=== PATIENT | male | born 1955 | race Caucasian/White ===

== ENCOUNTER 2018-06-20 09:57 | Emergency (ER) | payer BC ==
--- OUTSIDE RECORDS SUMMARY | 2018-06-20 10:27 | XMS REPORT | Continuity of Care Document ---
:1955 External Reference #:[id number] Author Name Margarita Fair Care Team Providers Name Role Phone Boni Sanchez NP Primary Care Physician Unavailable Payers Date Identification Numbers Payment Provider Subscriber Effective: 2014 Policy Number: [id number] [employer] Yecenia Anguiano PayID: [id number] [address] [address] [place] [address] Expires: 2011 Policy Number: [id number] [facility] Yecenia Annmarie PayID: [id number] [address] [address] [place] [address] Advance Directives Description No Information Available Problems Date Description Provider Status Onset: 05/13/2017 Type 2 diabetes mellitus Jackie Weaver M.D.,FACP Onset: 11/28/2007 Essential hypertension Jackie Weaver M.D.,FACP Onset: 11/28/2007 Attention deficit hyperactivity Jackie Weaver disorder, predominantly MNitin,FACP inattentive type Onset: 10/04/2009 Obesity Jackie Weaver M.D.,FACP Onset: 10/04/2009 Chronic pansinusitis Jackie Weaver M.D.,FACP Onset: 02/14/2015 Allergic rhinitis Jackie Weaver M.D.,FACP Onset: 02/14/2015 Lactose intolerance Jackie Weaver M.D.,FACP Onset: 02/18/2016 Immunodeficiency disorder Jackie Weaver M.D.,CHEIKHP Onset: 08/30/2017 Obstructive sleep apnea syndrome Jessica Goodman DNP, RN, Active [employer] Onset: 08/30/2017 Body mass index 30+ - obesity Jessica Goodman DNP, RN, Active [employer] Onset: 12/01/2017 Hypoxemia Jessica Goodman DNP, RN, Active [employer] Onset: 08/30/2007 Chronic frontal sinusitis Alex Layton, Inactive Stephanie,DOREEN Inactive: 08/24/2012 Onset: 02/10/2012 Acute maxillary sinusitis Tiff Nielsen NLiliana Inactive Inactive: 08/24/2012 Onset: 06/02/2016 Impaired fasting glycaemia Alex Layton M.D.,DOREEN Inactive Inactive: 05/13/2017 Family History Date Family Member(s) Observation Comments : (age Father due to Unknown Causes sudden -Afib 78 Years) Father Atrial Fibrillation Father Hypertension Father Obesity Father Hypercholesterolemia Mother paralyzed diaphragm Siblings 2 sister has Asthma, brother has hx of colon cancer First Brother Colon Polyps required partial colectomy ?pre-malignant Social History Type Date Description Comments Sex Unknown Marital Status Lives With Lives With Son Occupation Currently Working at [employer] Tobacco Use Start: Unknown Never Smoked Cigarettes ETOH Use 02/18/2016 Drinks Alcoholic Beverages Rarely Recreational Drug Use Denies Drug Use Tobacco Use Start: Unknown Patient has never smoked Smoking Status Reviewed: 06/06/18 Patient has never smoked Exercise Type/Frequency Exercises regularly Exercise Type/Frequency Walks 5 times a week At least 5x per week Allergies, Adverse Reactions, Alerts Date Description Reaction Status Severity Comments 06/15/2011 [place] severe sinus reaction Active 10/05/2012 Augmentin headache, nausea Active 08/30/2007 NKDA Inactive Medications Medication Date Status Form Strength Qnty SIG Indications Ordering Provider Shingrix 05/31 Active Suspension 50mcg/0.5 2unit 0.5ml Z23 Boni /2019 Rec ML s intramuscul [place] Sanchez ar, repeat 2-6 months later Naproxen 06/02 Active Tablets 500mg 60tab then as s needed Pepe Layotn M.D.,FACP Benadryl 06/02 Active Tablets 25mg 180ta 1-2 tabs 3x bs a day as Pepe Layton, needed M.D.,FACP Lactase Enzyme 06/02 Active Tablets 3000Unit 90tab 3 tabs by Alex s mouth Pepe Layton, before [place].Pepe,DOREEN meals Pseudoephedrine 06/02 Active Tablets 60mg 60tab 1 tab by Alex s mouth bid Pepe Layton, as needed M.D.,FACP Blood Pressure 06/14 Active Kit 1unit self-monito I10 Alex Kit s ring Pepe Layton, required M.D.,FACP Lisinopril 06/14 Active Tablets 5mg 30tab take one I1 s tablet by [place] Sanchez mouth every day Mucinex 10/04 Active Tablets ER 600mg 60tab 1 by mouth 12HR s bid Pepe Layton M.D.,FACP Adderall XR Active Caps ER 20mg 180ca 1 by mouth 24HR ps twice a day [place] Sanchez code b Calcium Active Tablets 400-500mg 180ta 2 tablets Alex 400/Vitamin D3 / -Unit bs by mouth Pepe Layton, daily [place].Pepe,FACP Move Free Active Tablets 500-400mg 180ta 2 tabs by Alex / bs mouth daily Pepe Layton M.D.,FACP Mens 50+ Multi Active Tablets 90tab 1 tab po qd Alex Vitamin & / s Pepe Layton Mineral Formula Stephanie,FACP Jose Manuel-E Complete Active Tablets DR 400mg 90tab 1 by mouth s every day Pepe Layton M.D.,FACP Magnesium Active Tablets 250mg 90tab 1 by mouth s every day Pepe Layton M.D.,FACP Coq-10 Active Capsules 100mg 90cap 1 by mouth s every day Pepe Layton M.D.,FACP Levocetirizine Active Tablets 5mg 1 po daily Unknown Dihydrochloride Montelukast Active Tablets 10mg 1 po daily Unknown Sodium Hyqvia Active Kit 10GM/100M SC monthly Unknown / L Esomeprazole Active Capsules DR 20mg 1 by mouth Unknown Magnesium / every day Glucosamine Active 2 po daily Unknown Chondroitin With MSM Qnasl Active Aerosol 80mcg/Act Saunders, Dequan bolton MD Beano Active Tablets prn Unknown Strattera Active Capsules 60mg 30cap take 1 Boni s capsule by [place] Sanchez mouth every evening Staxyn 05/25 Hx Tablets 10mg 10tab 1 tab by Dispers s mouth every D. Kinjal, - day as M.Pepe,[facility] 08/29 Viagra 03/05 Hx Tablets 100mg 10tab by mouth N52.9 s 0.5 or 1 D. Kinjal, - tab 1h M.DMoo,[facility] 05/25 intercourse Staxyn 02/16 Hx Tablets 10mg 10tab 1 tab po qd N52.9 Dispers s prn Ashlyn Rizzo M.D.,[facility] 03/05 Nexium 24HR 12/[address] 20mg 90cap 1 po qd Alex Clear Minis s Ashlyn Rizzo M.D.,[facility] 08/29 Hydrocodone-Acet 07/17 Hx Tablets 5-325mg 30tab 1 by mouth Alex aminophen s every 4-6 D. Kinjal, - hours prn. Stephanie,[facility] 02/16 Zithromax Z-Moi 11/09 Hx Tablets 250mg 1Pack as per 465.9 Oscar Ulrich /2013 Ashlyn Forde M.D. 02/14 Tamiflu 07/24 Hx Capsules 75mg 10cap 1 by mouth 487.8 s twice a day Pepe Layton, - x 5 days MNitin,[facility] 02/14 Zostavax 03/06 Hx Solution [id number]/ 1unit 1 dose s/c Rec 0.65ML s Ashlyn Rizzo M.D.,[facility] 07/24 Levofloxacin 10/05 Hx Tablets 500mg 10tab 1 po qd 473.8 s Ashlyn Rizzo M.D.,[facility] 11/30 Staxyn 10/05 Hx Tablets 10mg 10tab 1 tab prn 607.84 Dispers s Ashlyn Rizzo M.D.,[facility] 02/14 Augmentin 08/24 Hx Tablets 875-125mg 20tab 1 tablet 473.8 s bid po x Pepe Layton, - 10days Stephanie,[facility] 10/05 Calcium 1200 06/02 Hx Chewtabs 0885-1870 90uni 1 po qd mg-Unit ts Ashlyn Rizzo M.D.,[facility] 11/09 MSM 06/02 Hx Capsules 1000mg 90cap 1 by mouth s every day Ashlyn Rizzo M.D.,[facility] 02/14 Glucosamine HCL 06/02 Hx Tablets 1500mg Ashlyn Rizzo M.D.,[facility] 02/14 Chondroitin 06/02 Hx Capsules 1200mg 90cap 1 tab by Alex s mouth every Pepe Layton, - day MNitin,[facility] 02/14 Ibuprofen 06/02 Hx Tablets 400mg 100ta by mouth bs every 4 to Pepe Layton, - 6 hours as Stephanie,[facility] 07/17 needed Famotidine 06/02 Hx Tablets 20mg 60tab take one s tablet by Pepe Layton, - mouth as Stephanie,[facility] 02/16 needed [place]-3 Krill 06/02 Hx Capsules 300mg 90cap 1 by mouth Alex s every day Ashlyn Rizzo M.D.,[facility] 02/17 Tums E-X 750 06/02 Hx Chewtabs 750mg 120un 2-4 by its mouth every DMoo Layton, - day as Stephanie,[facility] 02/14 Amoxicillin/Pota 02/09 Hx Tablets 875-125mg 20tab take one 461.0 Tiff s tablet [place] Clavulanate - twice daily atson, 02/19 for 10 days N.P. /2011 Aspirin Ec 06/[address] 81mg 90tab 1 tablet by Alex Rico-Dose s mouth once Pepe Layton - jeffrey Brown,[facility] 02/14 Cialis 06/14 Hx Tablets 20mg 10tab 1/2- 1 prn 607.84 s as directed Ashlyn Rizzo M.D.,[facility] 10/05 Amoxicillin/Clav 06/11 Hx Tablets 875-125mg 20tab 1 po bid 466.0 [place] ulanate s Pachikara Cheri Goldberg M.D. 12/01 Doxycycline 11/06 Hx Capsules 100mg 20cap 1 po bid 473.8 Sivananda cl s , [place], - 06/11 Augmentin 07/09 Hx Tablets 875-125mg 28tab 1 bid x 14 s day Ashlyn Rizzo M.D.,[facility] 08/19 Azithromycin 06/18 Hx Tablets 500mg 10tab 1 tab qd 461.9 s for 10 days Ashlyn Rizzo M.D.,[facility] 07/09 Tamiflu 02/14 Hx Capsules 75mg 10cap 1 po qday x s 5 days Ashlyn Rizzo M.D.,[facility] 05/15 Terbinafine HCL 07/20 Hx Cream 1% Ashlyn Rizzo M.D.,[facility] 10/04 Naftin 07/11 Hx Cream 1% 30G topically 782.1 qd for 2 D. Ashlyn Layton wks Stephanie,[facility] 07/20 Maged Stockings 07/11 Hx 2unit bilateral, 459.30 s knee high, Pepe Layton, - 12-15 mmhgStephanie,[facility] 02/14 open toe Doxycycline 06/12 Hx Capsules 100mg 42cap bid PO Alex kushal s Ashlyn Rizzo M.D.,[facility] 07/11 Levaquin 05/31 Hx Tablets 500mg 7tabs 1 po qd x 7 days Ashlyn Rizzo M.D.,[facility] 06/12 Ceftin 05/29 Hx Tablets 500mg 20tab po bid for 782.3 s 10 days Ashlyn Rizzo M.D.,[facility] 08/19 Lasix 05/22 Hx Tablets 20mg 15tab po every am 782.3 s Ashlyn Rizzo M.D.,[facility] 05/29 Lisinopril 05/18 Hx Tablets 10mg 14tab 1 tablet po 401.9 s qd Ashlyn Rizzo M.D.,[facility] 06/14 Bystolic 03/29 Hx Tablets 5mg 90tab 1 po qd 401.9 s Ashlyn Rizzo M.D.,[facility] 05/18 Clarinex 11/27 Hx Tablets 5mg 90tab take one s tablet by Pepe Layton, - mouth once M.DMoo,[facility] 02/14 Zithromax 11/24 Hx Tablets 500mg 1pack Z-pack; use Oscar Ulrich per Ashlyn Braun MNitin 12/01 Ceftin 11/10 Hx Tablets 250mg 20tab 1 tab po s bid x 10 , Fany - fadumo Rhoades.DMoo 11/27 Lopressor 10/12 Hx Tablets 25mgM 60tab 1 bid 401.9 s Fany - M.D. 03/29 Clarinex-D 12 09/05 Hx Tablets ER 2.5-120 60tab bid PO prn 12HR Ashlyn Fajardo M.D.,[facility] 11/27 Omnaris 08/29 Hx Suspension 50mcg/Act 3Mon 1-2 sprays 473.1 each rudy Pepe Layton, - every day M.DMoo,[facility] 02/14 Zyrtec-D 00 Hx Tablets ER 5-120mg 60tab 1 tab bid Alex /0000 12HR s Ashlyn Rizzo M.D.,[facility] 09/05 dosage change Patanol Hx Solution 0.1% 3Bott 1-2gtts Alex / ls both eyes Pepe Layton - every day Stephanie,FACP 02/17 twice a day /2015 as needed Digestive Hx Capsules 90cap 1 by mouth Alex Support / s every day Ashlyn R[facility]zo M.D.,[facility] 08/29 Alrex Hx Suspension 0.2% 1unit use as Alex / s directed Ashlyn Rizzo M.D.,[facility] 02/14 Dulera Hx Aerosol 100-5mcg/ 2 puff Unknown /0000 Act twice a day - 02/16 Immunizations CPT Code Status Date Vaccine Lot # [id number] Given 02/16/2017 Influenza Virus Vaccine, Quadrivalent, Split, Preservative Free [id number] Given 01/17/2016 Influ Virus Vaccine, Quadrivalent, Split Virus, [place] [address] Given 01/31/2015 Flu Vaccine Split Virus Preservative Free For Indiv 3Yr Older 57702 Given 02/10/2013 Zoster (Zostavax) 83516 Given 02/10/2013 Flu Vaccine Split Virus Preservative Free For Indiv 3Yr Older 60742 Given 02/21/2012 Influenza Virus 3Yrs & Over 25857 Given 02/20/2011 Influenza Virus 3Yrs & Over 15995 Given 10/04/2009 Tdap - Tetanus/Diptheria/Acellular Pertussis [id number] 85521 Given 02/14/2009 Influenza Virus Vaccine, Pandemic Formulation [id number] 83800 Given 02/14/2009 Administration Swine Flu Shot Vital Signs Date Vital Result Comment 06/06/2018 8:05am Height 68 inches 5'8" Weight 230.50 lb Heart Rate 72 /min BP Systolic Sitting 150 mmHg Lue large cuff BP Diastolic Sitting 84 mmHg Lue large cuff Respiratory Rate 16 /min O2 % BldC Oximetry 96 % On Ra BMI (Body Mass Index) 35.0 kg/m2 05/31/2018 8:45am Height 68 inches 5'8" Weight 231.00 lb Heart Rate 69 /min BP Systolic Sitting 126 mmHg BP Diastolic Sitting 70 mmHg O2 % BldC Oximetry 97 % BMI (Body Mass Index) 35.1 kg/m2 12/01/2017 8:20am Height 68 inches 5'8" Weight 238.12 lb Heart Rate 60 /min BP Systolic Sitting 126 mmHg Lue large cuff BP Diastolic Sitting 82 mmHg Lue large cuff Respiratory Rate 12 /min O2 % BldC Oximetry 96 % BMI (Body Mass Index) 36.2 kg/m2 08/30/2017 9:01am Height 68 inches 5'8" Weight 245.00 lb Heart Rate 66 /min BP Systolic Sitting 132 mmHg Lue large cuff BP Diastolic Sitting 74 mmHg Lue large cuff Respiratory Rate 16 /min O2 % BldC Oximetry 96 % On Ra BMI (Body Mass Index) 37.2 kg/m2 06/14/2017 8:27am Height 68 inches 5'8" Weight 261.00 lb Heart Rate 68 /min BP Systolic Sitting 130 mmHg BP Diastolic Sitting 72 mmHg Respiratory Rate 14 /min O2 % BldC Oximetry 95 % BMI (Body Mass Index) 39.7 kg/m2 Neck Circumference in inches 18.5 05/25/2017 8:38am Weight 259.00 lb Heart Rate 97 /min BP Systolic Sitting 144 mmHg BP Diastolic Sitting 80 mmHg BP Systolic Recheck 137 mmHg BP Diastolic Recheck 85 mmHg Body Temperature 97.3 F O2 % BldC Oximetry 97 % 02/16/2017 3:07pm Height 66 inches 5'6" Weight 263.00 lb Heart Rate 84 /min BP Systolic Sitting 160 mmHg BP Diastolic Sitting 80 mmHg BP Systolic Recheck 142 mmHg BP Diastolic Recheck 85 mmHg Body Temperature 98.3 F O2 % BldC Oximetry 95 % BMI (Body Mass Index) 42.4 kg/m2 07/17/2016 2:52pm Weight 263.00 lb Heart Rate 73 /min BP Systolic Sitting 130 mmHg BP Diastolic Sitting 76 mmHg Respiratory Rate 18 /min Body Temperature 98.7 F O2 % BldC Oximetry 96 % 06/02/2016 2:49pm Weight 260.00 lb Heart Rate 85 /min BP Systolic Sitting 136 mmHg BP Diastolic Sitting 66 mmHg Body Temperature 98.3 F O2 % BldC Oximetry 94 % 02/18/2016 3:10pm Height 65.5 inches 5'5.50" Weight 258.00 lb Heart Rate 80 /min BP Systolic Sitting 144 mmHg BP Diastolic Sitting 80 mmHg O2 % BldC Oximetry 96 % BMI (Body Mass Index) 42.3 kg/m2 02/14/2015 2:49pm Height 66 inches 5'6" Weight 259.00 lb Heart Rate 76 /min BP Systolic Sitting 127 mmHg BP Diastolic Sitting 82 mmHg Body Temperature 98.3 F O2 % BldC Oximetry 98 % BMI (Body Mass Index) 41.8 kg/m2 11/09/2013 9:55am Height 66.5 inches 5'6.50" Weight 249.50 lb Heart Rate 80 /min BP Systolic Sitting 126 mmHg BP Diastolic Sitting 88 mmHg Body Temperature 97.8 F BMI (Body Mass Index) 39.7 kg/m2 07/24/2013 11:47am Weight 249.25 lb Heart Rate 82 /min BP Systolic Sitting 138 mmHg BP Diastolic Sitting 82 mmHg Body Temperature 97.8 F O2 % BldC Oximetry 96 % 11/30/2012 4:00pm Weight 254.00 lb Heart Rate 82 /min BP Systolic Sitting 136 mmHg BP Diastolic Sitting 82 mmHg 10/05/2012 3:44pm Height 66 inches 5'6" Weight 254.50 lb Heart Rate 100 /min BP Systolic Sitting 126 mmHg BP Diastolic Sitting 78 mmHg Body Temperature 99.3 F BMI (Body Mass Index) 41.1 kg/m2 08/24/2012 8:55am Height 66.5 inches 5'6.50" Weight 260.00 lb Heart Rate 76 /min BP Systolic Sitting 130 mmHg BP Diastolic Sitting 82 mmHg BMI (Body Mass Index) 41.3 kg/m2 02/10/2012 12:40pm Height 66.5 inches 5'6.50" Weight 66.00 lb BP Systolic 118 mmHg BP Diastolic 76 mmHg Body Temperature 98.9 F lt ear BMI (Body Mass Index) 10.5 kg/m2 06/15/2011 10:41am Height 66.5 inches 5'6.50" Weight 248.00 lb Heart Rate 76 /min BP Systolic Sitting 132 mmHg BP Diastolic Sitting 84 mmHg BMI (Body Mass Index) 39.4 kg/m2 12/01/2010 1:08pm Weight 245.00 lb Heart Rate 96 /min BP Systolic Sitting 144 mmHg BP Diastolic Sitting 78 mmHg Body Temperature 97.8 F Tympanic 06/11/2010 2:43pm Weight 238.00 lb Heart Rate 88 /min BP Systolic Sitting 130 mmHg BP Diastolic Sitting 80 mmHg Body Temperature 97.9 F tympanic 11/06/2009 9:16am Weight 241.00 lb Heart Rate 71 /min BP Systolic Sitting 130 mmHg BP Diastolic Sitting 78 mmHg 10/04/2009 9:04am Height 65 inches 5'5" Weight 241.00 lb Heart Rate 68 /min BP Systolic Sitting 137 mmHg BP Diastolic Sitting 88 mmHg BMI (Body Mass Index) 40.1 kg/m2 06/18/2009 2:16pm Weight 246.00 lb Heart Rate 82 /min BP Systolic Sitting 130 mmHg BP Diastolic Sitting 80 mmHg Body Temperature 98.2 F 02/14/2009 3:12pm Height 65 inches 5'5" Weight 240.00 lb Heart Rate 86 /min BP Systolic Sitting 142 mmHg BP Diastolic Sitting 88 mmHg Body Temperature 98.5 F BMI (Body Mass Index) 39.9 kg/m2 07/11/2008 9:40am Height 65 inches 5'5" Weight 244.00 lb Heart Rate 74 /min BP Systolic Sitting 184 mmHg BP Diastolic Sitting 82 mmHg BMI (Body Mass Index) 40.6 kg/m2 05/29/2008 11:27am Height 65 inches 5'5" Weight 246.00 lb Heart Rate 70 /min BP Systolic Sitting 144 mmHg BP Diastolic Sitting 80 mmHg BMI (Body Mass Index) 40.9 kg/m2 05/22/2008 11:26am Height 65 inches 5'5" Weight 247.00 lb Heart Rate 76 /min BP Systolic Sitting 162 mmHg BP Diastolic Sitting 90 mmHg BMI (Body Mass Index) 41.1 kg/m2 03/29/2008 11:46am Height 65 inches 5'5" Weight 243.00 lb Heart Rate 60 /min BP Systolic Sitting 116 mmHg BP Diastolic Sitting 72 mmHg BMI (Body Mass Index) 40.4 kg/m2 11/28/2007 4:18pm Height 65 inches 5'5" Weight 250.00 lb Heart Rate 72 /min BP Systolic Sitting 168 mmHg BP Diastolic Sitting 80 mmHg BMI (Body Mass Index) 41.6 kg/m2 11/11/2007 2:55pm Height 65 inches 5'5" Weight 250.00 lb Heart Rate 76 /min BP Systolic Sitting 148 mmHg BP Diastolic Sitting 88 mmHg BMI (Body Mass Index) 41.6 kg/m2 10/13/2007 9:49am Height 65 inches 5'5" Weight 242.00 lb Heart Rate 88 /min BP Systolic Sitting 186 mmHg BP Diastolic Sitting 112 mmHg BMI (Body Mass Index) 40.3 kg/m2 08/30/2007 2:14pm Weight 244.00 lb Heart Rate 80 /min BP Systolic Sitting 160 mmHg BP Diastolic Sitting 90 mmHg Results Test Date Facility Test Result H/L Range Note Lipid Profile 03/18/2018 [facility] Triglycerides 42 mg/dL 1, 2 (Trig/Chol/HDL) [address] [place] [address] [phone] Cholesterol 147 mg/dL 3 HDL Cholesterol 35.2 mg/dL 4 LDL Cholesterol 103 mg/dL 5 Basic Metabolic Panel 03/18/2018 [facility] Sodium 141 mmol/L N 135-145 [address] [place] [address] [phone] Potassium 4.3 mmol/L N 3.5-5.0 Chloride 107 mmol/L N 101-111 Co2 Carbon Dioxide 29 mmol/L N 22-32 Anion Gap 5 mmol/L N 2-11 Glucose 98 mg/dL N 70-100 Blood Urea Nitrogen 20 mg/dL N 6-24 Creatinine 0.81 mg/dL N 0.67-1.17 BUN/Creatinine Ratio 24.7 High 8-20 Calcium 8.9 mg/dL N 8.6-10.3 Egfr Non- 97.2 >60 Egfr 117.6 >60 6 Laboratory test 03/18/2018 [facility] Hemoglobin A1c 5.8 % High 4.0-5.6 7 finding 101 (Glyco HGB) [place] [address] [phone] Liver Function 10/20/2017 [facility] Total Protein 6.4 g/dL N 6.4-8.9 Panel [address] [place] [address] [phone] Albumin 3.9 g/dL N 3.2-5.2 Globulin 2.5 g/dL N 2-4 Albumin/Globulin Ratio 1.6 N 1-3 Total Bilirubin 0.80 mg/dL N 0.2-1.0 Direct Bilirubin 0.20 mg/dL High 0.03-0.18 Indirect Bilirubin 0.6 mg/dL N 0.3-1.0 Alkaline Phosphatase 99 U/L N 34-104 Alt 22 U/L N 7-52 Ast 22 U/L N 13-39 Immunoglobulins 10/20/2017 [facility] Immunoglobulin G 1120 767 - [address] [facility] mg/dL [address] [place] [address] [phone] Immunoglobulin M 115 mg/dL 37 - 286 Immunoglobulin A 186 mg/dL 61 - 356 Laboratory test 10/20/2017 [facility] Hemoglobin A1c 6.4 % High 4.0-5.6 9, [address] [facility] (Glyco HGB) [place] [address] [phone] Urine 05/25/2017 [facility] Ur Microalbumin < 15.0 11 Microalbumin 101 (mg/L) mg/[place] [address] [phone] Urine Creatinine 179.69 mg/dL Urine Microalbumin/Creatinine TNP ug/mg <31 12 Laboratory test 05/11/2017 [facility] Glucose 133 mg/dL High 70-100 13, 14 finding [address] [place] [address] [phone] Hemoglobin A1c (Glyco HGB) 7.2 % High 4.0-5.6 15 Basic Metabolic Panel 02/15/2017 [facility] Sodium 138 mmol/L N 133-145 [address] [place] [address] [phone] Potassium 4.1 mmol/L N 3.5-5.0 Chloride 104 mmol/L N 101-111 Co2 Carbon Dioxide 30 mmol/L N 22-32 Anion Gap 4 mmol/L N 2-11 Glucose 137 mg/dL High 70-100 Blood Urea Nitrogen 18 mg/dL N 6-24 Creatinine 0.94 mg/dL N 0.67-1.17 BUN/Creatinine Ratio 19.1 N 8-20 Calcium 8.7 mg/dL N 8.6-10.3 Egfr Non- 82.1 N >60 Egfr 105.6 N >60 16 Lipid Profile 02/15/2017 [facility] Triglycerides 86 mg/dL N 17 (Trig/Chol/HDL) [address] [place] [address] [phone] Cholesterol 157 mg/dL N 18 HDL Cholesterol 30.8 mg/dL N 19 LDL Cholesterol 109 mg/dL N 20 CBC Auto Diff 02/15/2017 [facility] White Blood 9.1 10^3/uL N 3.5-10.[address] [place] [address] [phone] Red Blood Count 5.22 10^6/uL N 4.0-5.4 Hemoglobin 15.1 g/dL N 14.0-18.0 Hematocrit 45 % N 42-52 Mean Corpuscular Volume 87 fL N 80-94 Mean Corpuscular Hemoglobin 29 pg N 27-31 Mean Corpuscular HGB Conc 33 g/dL N 31-36 Red Cell Distribution Width 14 % N 10.5-15 Platelet Count 247 10^3/uL N 150-450 Mean Platelet Volume 8 um3 N 7.4-10.4 Abs Neutrophils 6.7 10^3/uL N 1.5-7.7 Abs Lymphocytes 1.4 10^3/uL N 1.0-4.8 Abs Monocytes 0.6 10^3/uL N 0-0.8 Abs Eosinophils 0.4 10^3/uL N 0-0.6 Abs Basophils 0 10^3/uL N 0-0.2 Abs Nucleated RBC 0 10^3/uL N Granulocyte % 73.9 % N 38-83 Lymphocyte % 15.3 % Low 25-47 Monocyte % 6.5 % N 1-9 Eosinophil % 3.9 % N 0-6 Basophil % 0.4 % N 0-2 Nucleated Red Blood Cells % 0 N Laboratory test 05/14/2016 [facility] Surgical SEE RESULT [address] [place] [address] [phone] Laboratory test 03/23/2016 [facility] Glucose 96 mg/dL N 70- 100 [address] [place] [address] [phone] Hemoglobin A1c (Glyco HGB) 6.2 % High Less than 6.0 23 Lipid Profile 02/14/2016 [facility] Triglycerides 144 mg/dL N 24 (Trig/Chol/HDL) [address] [place] [address] [phone] Cholesterol 161 mg/dL N 25 HDL Cholesterol 33.3 mg/dL N 26 LDL Cholesterol 99 mg/dL N 27 Basic Metabolic Panel 02/14/2016 [facility] Sodium 139 mmol/L N 133-[address] [place] [address] [phone] Potassium 4.2 mmol/L N 3.5-5.0 Chloride 106 mmol/L N 101-111 Co2 Carbon Dioxide 29 mmol/L N 22-32 Anion Gap 4 mmol/L N 2-11 Glucose 125 mg/dL High 70-100 Blood Urea Nitrogen 15 mg/dL N 6-24 Creatinine 0.99 mg/dL N 0.67-1.17 BUN/Creatinine Ratio 15.2 N 8-20 Calcium 8.8 mg/dL N 8.6-10.3 Egfr Non- 77.6 N >60 Egfr 99.9 N >60 28 Liver Function 02/14/2016 [facility] Total Protein 6.6 g/dL N 6.4-8.[address] [place] [address] [phone] Albumin 3.8 g/dL N 3.2-5.2 Globulin 2.8 g/dL N 2-4 Albumin/Globulin Ratio 1.4 N 1-3 Total Bilirubin 0.60 mg/dL N 0.2-1.0 Direct Bilirubin 0.10 mg/dL N 0.03-0.18 Indirect Bilirubin 0.5 mg/dL N 0.3-1.0 Alkaline Phosphatase 79 U/L N 34-104 Alt 30 U/L N 7-52 Ast 26 U/L N 13-39 Immunoglobulins 02/14/2016 [facility] Immunoglobulin G 1120 N 767 - 29 Serum Quant [address] mg/dL [address] [place] [address] [phone] Immunoglobulin M 109 mg/dL N 37 - 286 Immunoglobulin A 228 mg/dL N 61 - 356 Basic Metabolic Panel 05/16/2015 [facility] Sodium 136 mmol/L N 133-[address] [place] [address] [phone] Potassium 3.9 mmol/L N 3.5-5.0 Chloride 104 mmol/L N 101-111 Co2 Carbon Dioxide 27 mmol/L N 22-32 Anion Gap 5 mmol/L N 2-11 Glucose 154 mg/dL High 70-100 Blood Urea Nitrogen 16 mg/dL N 6-24 Creatinine 0.92 mg/dL N 0.67-1.17 BUN/Creatinine Ratio 17.4 N 8-20 Calcium 8.9 mg/dL N 8.6-10.3 Egfr Non- 84.8 N >60 Egfr 109.1 N >60 30 Laboratory 05/16/2015 [facility] Hepatitis C Nonreactive N Nonreactive test finding [address] [facility] [place] [address] [phone] Basic 08/25/2012 [facility] Sodium 141 mmol/L 133-[address] [facility] [place] [address] [phone] Potassium 4.3 mmol/L 3.5-5.0 Chloride 104 mmol/L 101-111 Co2 Carbon Dioxide 31.0 mmol/L 22-32 Anion Gap 6.0 mmol/L 2-11 Glucose 100 mg/dL 70-100 Blood Urea Nitrogen 15 mg/dL 6-24 Creatinine 1.00 mg/dL 0.50-1.40 BUN/Creatinine Ratio 15.0 8-20 Calcium 8.9 mg/dL 8.1-9.9 Egfr Non- 77.6 >60 Egfr 99.8 >60 31 Lipid Profile 08/25/2012 [facility] Triglycerides 72 mg/dL 40 -200 (Trig/Chol/HDL) [address] [place] [address] [phone] Cholesterol 164 mg/dL Less than 200 HDL Cholesterol 34 mg/dL Low 40-60 32 Cholesterol/HDL Ratio 4.8 Average High 1-4.44 LDL Cholesterol 115.6 mg/dL High Less Than 100 33 Lipid Profile 06/12/2011 [facility] Triglyceride 56 mg/dL 40- 200 (Trig/Chol/HDL) [address] [place] [address] [phone] Cholesterol 164 mg/dL Less Than 200 34 High Density Lipoprotein 30 mg/dL Low 40-60 35 Cholesterol/HDL Ratio 5.47 AVERAGE High 1-4.97 Low Density Lipoprotein 123 mg/dL High Less Than 100 36 Comp Metabolic Panel 06/12/2011 [facility] Sodium 138 mmol/L 135-145 [address] [place], [place] [address] [phone] Potassium 4.1 mmol/L 3.5-5.0 Chloride 103 mmol/L 101-111 Co2 (Carbon Dioxide) 27.0 mmol/L 22-32 Anion Gap 8.0 mmol/L 2-11 37 Glucose 93 mg/dL 70-100 BUN 13 mg/dL 6-24 Creatinine 1.1 mg/dL 0.50-1.40 One Over Creatinine 0.90 BUN/Creatinine Ratio 11.8 8-20 Calcium 8.6 mg/dL 8.1-9.9 Total Protein 6.3 GM/DL 6.2-8.1 Albumin 3.8 GM/DL 3.6-5.4 Globulin 2.5 GM/DL 2-4 Albumin/Globulin Ratio 1.5 1-3 Bilirubin Total 1.1 mg/dL 0.4-1.5 38 Alkaline Phosphatase 90 U/L 39-117 Alt (SGPT) 35 U/L 17-63 Ast (Sgot) 27 U/L 12-42 eGFR Non- 69.8 > 60 eGFR 89.7 > 60 39 CBC With Manual 06/12/2011 [facility] White Blood 7.9 CUMM 4.8-10.[address] [place] [address] [phone] Red Cell Count 5.30 CUMM 4.6-6.2 Hemoglobin 15.5 g/dL 14.0-18.0 Hematocrit 46 % 42-52 Mean Corpuscular Volume 87 um3 80-94 Mean Corpuscular Hemoglob 29 pg 27-31 Mean Corpuscular HGB Cone 34 g/dL 32-36 Redcell Distribution WDTH 14 % 10.5-15 Platelet Count 248 CUMM 150-450 Mean Platelet Volume 8.1 um3 7.4-10.4 Polysegmented Neutrophil 76 % 38-83 Lymphocyte 17 % Low 25-47 Monocyte 4 % 0-13 Eosinophil 3 % 0-6 Absolute Neutrophil Count 6.0 RBC Morphology NORMAL Surgical 03/04/2011 [facility] Surgical [address] Pathology <SEE NOTE> [place] [address] [phone] Lipid Profile 10/08/2009 [facility] Triglyceride 78 mg/dL 40 - (Trig/Chol/HD [address]) [place] [address] [phone] Cholesterol 194 mg/dL Less Than 200 41 High Density Lipoprotein 29 mg/dL Low 40-60 42 Cholesterol/HDL Ratio 6.69 AVERAGE High 1-4.97 Low Density Lipoprotein 149 mg/dL High Less Than 100 43 Comp Metabolic Panel 10/08/2009 [facility] Sodium 135 mmol/L 135-[address] [place] [address] [phone] Potassium 4.3 mmol/L 3.5-5.0 Chloride 103 mmol/L 101-111 Co2 (Carbon Dioxide) 25.0 mmol/L 22-32 Anion Gap 7.0 mmol/L 2-11 44 Glucose 106 mg/dL High 70-100 45 BUN 16 mg/dL 6-24 Creatinine 0.90 mg/dL 0.50-1.40 One Over Creatinine 1.10 BUN/Creatinine Ratio 17.8 8-20 Calcium 8.6 mg/dL 8.1-9.9 46 Total Protein 6.1 GM/DL Low 6.2-8.1 Albumin 3.9 GM/DL 3.6-5.4 Globulin 2.2 GM/DL 2-4 Albumin/Globulin Ratio 1.8 1-3 Bilirubin Total 1.2 mg/dL 0.4-1.5 47 Alkaline Phosphatase 70 U/L 39-117 Alt (SGPT) 38 U/L 17-63 Ast (Sgot) 32 U/L 12-42 eGFR Non- 94.2 > 60 eGFR 114.0 > 60 48 CBC With Manual 10/08/2009 [facility] White Blood 9.0 CUMM 4.8-10.[address] [place] [address] [phone] Red Cell Count 5.24 CUMM 4.6-6.2 Hemoglobin 15.4 g/dL 14.0-18.0 Hematocrit 46 % 42-52 Mean Corpuscular Volume 88 um3 80-94 Mean Corpuscular Hemoglob 29 pg 27-31 Mean Corpuscular HGB Cone 33 g/dL 32-36 Redcell Distribution WDTH 14 % 10.5-15 Platelet Count 267 CUMM 150-450 Mean Platelet Volume 7.7 um3 7.4-10.4 Polysegmented Neutrophil 75 % 38-83 Lymphocyte 14 % Low 25-47 Monocyte 8 % 0-13 Eosinophil 2 % 0-6 Atypical Lymph 1 % 0-6 Absolute Neutrophil Count 6.7 Anisocytosis SLIGHT Lyme Western 06/08/2008 [facility] Lyme Disease Negative Negative 49 Blot Specialty [address] [place] [address] Blot [phone] Lyme Disease Igm Western Blot Negative Negative 50 Lyme Disease Interpretation . () 51 Laboratory test 06/08/2008 [facility] C Reactive 1.5 mg/dL High Less Than finding [address] Protein 0.5 [place] [address] [phone] Lyme Disease Serology Positive Negative 52 CBC With 06/08/2008 [facility] White Blood 9.7 CUMM 4.8-10.8 Electronic Diff [address] [place] [address] [phone] Red Cell Count 5.11 CUMM 4.6-6.2 Hemoglobin 14.6 g/dL 14.0-18.0 Hematocrit 44 % 42-52 Mean Corpuscular Volume 85 um3 80-94 Mean Corpuscular Hemoglob 29 pg 27-31 Mean Corpuscular HGB Cone 33 g/dL 32-36 Redcell Distribution WDTH 13 % 10.5-15 Platelet Count 352 CUMM 150-450 Mean Platelet Volume 6.8 um3 Low 7.4-10.4 Gran % 76.8 % 38-83 Lymph % 13.6 % Low 25-47 Mononuclear % 7.0 % 1-9 Eosinophil % 2.3 % 0-6 Basophil % 0.3 % 0-2 Abs Lymphs 1.3 1.0-4.8 Abs Mononuclear 0.7 0-0.8 Absolute Neutrophil Count 7.4 1.5-7.7 Abs Eosinophils 0.2 0-0.6 Abs Basophils 0 0-0.2 53 Laboratory test 05/22/2008 [facility] D Dimer 573 NG/ML High < 230 [address] [place] [address] [phone] Comp Metabolic 05/22/2008 [facility] Sodium 140 135-[address] mmol/[place] [address] [phone] Potassium 3.8 mmol/L 3.5-5.0 Chloride 105 mmol/L 101-111 Co2 (Carbon Dioxide) 29.0 mmol/L 22-32 Anion Gap 6.0 mmol/L 2-11 55 Glucose 81 mg/dL 70-100 56 BUN 10 mg/dL 6-24 Creatinine 0.90 mg/dL 0.50-1.40 One Over Creatinine 1.10 BUN/Creatinine Ratio 11.1 8-20 Calcium 9.3 mg/dL 8.1-9.9 57 Total Protein 6.3 GM/DL 6.2-8.1 Albumin 3.6 GM/DL 3.6-5.4 Globulin 2.7 GM/DL 2-4 Albumin/Globulin Ratio 1.3 1-3 Bilirubin Total 1.3 mg/dL 0.4-1.5 Alkaline Phosphatase 87 U/L 39-117 Alt (SGPT) 42 U/L 17-63 Ast (Sgot) 35 U/L 12-42 CBC With 05/22/2008 [facility] White Blood 10.9 CUMM High 4.8- 10.8 Manual Diff [address] [place] [address] [phone] Red Cell Count 4.90 CUMM 4.6-6.2 Hemoglobin 14.3 g/dL 14.0-18.0 Hematocrit 42 % 42-52 Mean Corpuscular Volume 86 um3 80-94 Mean Corpuscular Hemoglob 29 pg 27-31 Mean Corpuscular HGB Cone 34 g/dL 32-36 Redcell Distribution WDTH 13 % 10.5-15 Platelet Count 295 CUMM 150-450 Mean Platelet Volume 7.5 um3 7.4-10.4 Polysegmented Neutrophil 75 % 38-83 Band Neutrophil 2 % 0-8 Lymphocyte 10 % Low 25-47 Monocyte 7 % 0-13 Eosenophil 3 % 0-6 Basophil 1 % 0-2 Atypical Lymph 2 % 0-6 Absolute Neutrophil Count 8.3 Anisocytosis SLIGHT Laboratory test 05/22/2008 [facility] Uric Acid 5.2 mg/dL 2.6 -7.[address] [place] [address] [phone] Erythrocyte Sed Rate 18 MM/HR 0-20 C Reactive Protein 4.2 mg/dL High Less Than 0.5 Lipid Profile 10/17/2007 [facility] Triglyceride 120 mg/dL 40 -200 58 (Trig/Chol/HDL) [address] [place] [address] [phone] Cholesterol 185 mg/dL Less Than 200 59 High Density Lipoprotein 27 mg/dL Low 40-60 60 Cholesterol/HDL Ratio 6.85 AVERAGE High 1-4.97 Low Density Lipoprotein 134 mg/dL High Less Than 100 61 CBC With 10/17/2007 [facility] White Blood 9.2 CUMM 4.8-10.8 Electronic Diff [address] [place] [address] [phone] Red Cell Count 5.43 CUMM 4.6-6.2 Hemoglobin 15.2 g/dL 14.0-18.0 Hematocrit 45 % 42-52 Mean Corpuscular Volume 83 um3 80-94 Mean Corpuscular Hemoglob 28 pg 27-31 Mean Corpuscular HGB Cone 34 g/dL 32-36 Redcell Distribution WDTH 14 % 10.5-15 Platelet Count 290 CUMM 150-450 Mean Platelet Volume 7.3 um3 Low 7.4-10.4 Gran % 72.6 % 38-83 Lymph % 17.4 % Low 20-45 Mononuclear % 6.9 % 1-9 Eosinophil % 2.8 % 0-6 Basophil % 0.3 % 0-2 Abs Lymphs 1.6 1.0-4.8 Abs Mononuclear 0.6 0-0.8 Absolute Neutrophil Count 6.7 1.5-7.7 Abs Eosinophils 0.3 0-0.6 Abs Basophils 0 0-0.2 62 Basic Metabolic Panel 10/17/2007 [facility] Sodium 139 mmol/L 135-[address] [place] [address] [phone] Potassium 3.7 mmol/L 3.5-5.0 Chloride 107 mmol/L 101-111 Co2 (Carbon Dioxide) 26.0 mmol/L 22-32 Anion Gap 6.0 mmol/L 2-11 63 Glucose 112 mg/dL High 70-105 BUN 14 mg/dL 6-24 Creatinine 1.1 mg/dL 0.5-1.4 One Over Creatinine 0.90 BUN/Creatinine Ratio 12.7 8-20 Calcium 8.4 mg/dL 8.1-9.9 64 1 FASTING 10 HOUR 2 Desirable: <150 Borderline High: 150-199 High: 200-499 Very High: >500 3 Desirable: <200 Borderline High: 200-239 High: >239 4 Low: <40 Desirable: 40-60 High: >60 5 Desirable: <100 Near Optimal: 100-129 Borderline High: 130-159 High: 160-189 Very High: >189 6 Because ethnic data is not always readily available, this report includes an eGFR for both -Americans and non- Americans. The National Kidney Disease Education Program (NKDEP) does not endorse the use of the MDRD equation for patients that are not between the ages of 18 and 70, are , have extremes of body size, muscle mass, or nutritional status, or are non- or non-. According to the National Kidney Foundation, irrespective of diagnosis, the stage of the disease is based on the level of kidney function: Stage Description GFR(mL/min/1.73 m(2)) 1 Kidney damage with normal or decreased GFR 90 2 Kidney damage with mild decrease in GFR 60-89 3 Moderate decrease in GFR 30-59 4 Severe decrease in GFR 15-29 5 Kidney failure <15 (or dialysis) 7 Therapeutic target for the treatment of diabetes mellitus patients is <7% HBA1C, and in selective patients <6.0%. Please refer to [place] [employer] diabetic care guidelines for further information. 8 Test Performed by: [address] [address] 9 PLEASE FAX RESULTS TO: [phone] Therapeutic target for the treatment of diabetes mellitus patients is <7% HBA1C, and in selective patients <6.0%. Please refer to [employer] diabetic care guidelines for further information. 11 [id number] Unable to calculate due to low microalbumin 13 FASTING 10 HR 14 FASTING 10 HR 15 Therapeutic target for the treatment of diabetes mellitus patients is <7% HBA1C, and in selective patients <6.0%. Please refer to [employer] diabetic care guidelines for further information. 16 Because ethnic data is not always readily available, this report includes an eGFR for both -Americans and non- Americans. The National Kidney Disease Education Program (NKDEP) does not endorse the use of the MDRD equation for patients that are not between the ages of 18 and 70, are , have extremes of body size, muscle mass, or nutritional status, or are non- or non-. According to the National Kidney Foundation, irrespective of diagnosis, the stage of the disease is based on the level of kidney function: Stage Description GFR(mL/min/1.73 m(2)) 1 Kidney damage with normal or decreased GFR 90 2 Kidney damage with mild decrease in GFR 60-89 3 Moderate decrease in GFR 30-59 4 Severe decrease in GFR 15-29 5 Kidney failure <15 (or dialysis) 17 Desirable: <150 Borderline High: 150-199 High: 200-499 Very High: >500 18 Desirable: <200 Borderline High: 200-239 High: >239 19 Low: <40 Desirable: 40-60 High: >60 20 Desirable: <100 Near Optimal: 100-129 Borderline High: 130-159 High: 160-189 Very High: >189 21 SEE RESULT BELOW Name: JESSI ANGUIANO : [address]: Reymundo Boston MD Acct: [id number] Unit: [id number] AGE: 60 Location: ENDO Re05/14/16 SEX: M Status: DEP REF SPEC: [id number] COTY: 05/14/[address] [facility] [address]: Reymundo Boston MD REQ: [id number] RECD: 05/14/16 STATUS: KERRY NUNEZ DR: Alex Layton MD _ ORDERED: LEVEL IV/3 FINAL DIAGNOSIS 1. Colon, proximal right, biopsy: -- Tubular adenoma. -- No high grade dysplasia or malignancy. 2. Colon, mid right, biopsy: -- Tubular adenoma. -- No high grade dysplasia or malignancy. 3. Colon, mid transverse, biopsy: -- Tubular adenoma. -- No high grade dysplasia or malignancy. CLINICAL HISTORY Follow-up; positive family history POST-OPERATIVE DIAGNOSIS Colonoscopy to cecum with ease, prep good - elevated haustral - all normal except polyps. Conclusions/Plan: Left diverticulosis; ++family history; polyps - 3; 4 years GROSS DESCRIPTION 1. The specimen is received in formalin labeled, Biopsy Proximal Right Colon Polyp, and consists of two speckled mariee-pink polypoid soft tissue fragments averaging 0.4 x 0.2 x 0.2 cm, which are entirely submitted in one cassette. 2. The specimen is received in formalin labeled, Biopsy Mid Right Colon Polyp, and consists of a 0.4 x 0.2 x 0.2 cm mariee-pink polypoid soft tissue fragment, which is entirely submitted in one cassette. 3. The specimen is received in formalin labeled, Mid Transverse Colon Polyp , and consists CONTINUED ON NEXT PAGE * ML=Testing performed at Main Lab DEPARTMENT OF PATHOLOGY, [address] [place] [address] Nickolas Hassan M.D. Director [facility] # [id number] RUN DATE: 05/15/16 [facility] LAB LIVE PAGE 2 Patient: JESSI ANGUIANO [id number] (Continued) GROSS DESCRIPTION (Continued) GROSS DESCRIPTION (Continued) of a 0.8 x 0.5 x 0.2 cm aggregate of mariee-white irregular to polypoid soft tissue fragment, which are entirely submitted in one cassette. Signed (signature on file) Radha Heath MD 06/26 1305 END OF REPORT * ML=Testing performed at Main Lab DEPARTMENT OF PATHOLOGY, [address] [place] [address] Nickolas Hassan M.D. Director [facility] # [id number] 22 FASTING 23 Therapeutic target for the treatment of diabetes Mellitus patients is <7% HBA1C, and in selective patients <6.0%.Please refer to [place] [employer] Diabetic care guidelines for further information. 24 Desirable <150 Borderline high 150-199 High 200-499 Very High >500 25 Desirable <200 Borderline high 200-239 High >239 26 Low <40 Desirable: 40-60 High: >60 27 Desirable: <100 mg/dL Near Optimal: 100-129 mg/dL Borderline High: 130-159 mg/dL High: 160-189 mg/dL Very High: >189 mg/dL 28 Because ethnic data is not always readily available, this report includes an eGFR for both -Americans and non- Americans. The National Kidney Disease Education Program (NKDEP) does not endorse the use of the MDRD equation for patients that are not between the ages of 18 and 70, are , have extremes of body size, muscle mass, or nutritional status, or are non- or non-. According to the National Kidney Foundation, irrespective of diagnosis, the stage of the disease is based on the level of kidney function: Stage Description GFR(mL/min/1.73 m(2)) 1 Kidney damage with normal or decreased GFR 90 2 Kidney damage with mild decrease in GFR 60-89 3 Moderate decrease in GFR 30-59 4 Severe decrease in GFR 15-29 5 Kidney failure <15 (or dialysis) 29 Test Performed by: [address] [address] Classroom Assistant: Antione Black II, M.D., Ph.D. 30 Because ethnic data is not always readily available, this report includes an eGFR for both -Americans and non- Americans. The National Kidney Disease Education Program (NKDEP) does not endorse the use of the MDRD equation for patients that are not between the ages of 18 and 70, are , have extremes of body size, muscle mass, or nutritional status, or are non- or non-. According to the National Kidney Foundation, irrespective of diagnosis, the stage of the disease is based on the level of kidney function: Stage Description GFR(mL/min/1.73 m(2)) 1 Kidney damage with normal or decreased GFR 90 2 Kidney damage with mild decrease in GFR 60-89 3 Moderate decrease in GFR 30-59 4 Severe decrease in GFR 15-29 5 Kidney failure <15 (or dialysis) 31 Because ethnic data is not always readily available, this report includes an eGFR for both -Americans and non- Americans. The National Kidney Disease Education Program (NKDEP) does not endorse the use of the MDRD equation for patients that are not between the ages of 18 and 70, are , have extremes of body size, muscle mass, or nutritional status, or are non- or non-. According to the National Kidney Foundation, irrespective of diagnosis, the stage of the disease is based on the level of kidney function: Stage Description GFR(mL/min/1.73 m(2)) 1 Kidney damage with normal or decreased GFR 90 2 Kidney damage with mild decrease in GFR 60-89 3 Moderate decrease in GFR 30-59 4 Severe decrease in GFR 15-29 5 Kidney failure <15 (or dialysis) 32 HDL Interpretation: Undesirable: High Risk: Less than 40 MG/DL Desirable: Low Risk: Greater than 60 MG/DL 33 LDL Interpretation: Low Risk Optimal Level: LDL Less than 100 MG/DL Near or Above Optimal: LDL 100-129 MG/DL Borderline High Risk: LDL 130-159 MG/DL High Risk: LDL 160-189 MG/DL Very High Risk: LDL Greater than 189 MG/DL 34 CHOLESTEROL INTERPRETATION: Desirable: Less than 200 MG/DL Borderline-High Risk: 200-239 MG/DL High-Risk: 240 MG/DL and over 35 HDL INTERPRETATION: Undesirable: High Risk: Less than 40 MG/DL Desirable: Low Risk: Greater than 60 MG/DL 36 LDL INTERPRETATION: Low Risk Optimal Level: LDL Less than 100 MG/DL Near or Above Optimal: LDL 100-129 MG/DL Borderline High Risk: LDL 130-159 MG/DL High Risk: LDL 160-189 MG/DL Very High Risk: LDL Greater than 189 MG/DL 37 Anion gap measurement may be of limited value in the presence of any alkalosis, especially in a combined acid base disorder. . 38 A metabolite of Naproxen, O-desmethylnaproxen, has been shown to interfere with the Jendrassik-Anastacia method for measuring total bilirubin. Samples from patients who have taken Naproxen have shown spurious elevation in total bilirubin levels. 39 Because ethnic data is not always readily available, this report includes an eGFR for both -Americans and non- Americans. The National Kidney Disease Education Program (NKDEP) does not endorse the use of the MDRD equation for patients that are not between the ages of 18 and 70, are , have extremes of body size, muscle mass, or nutritional status, or are non- or non-. According to the National Kidney Foundation, irrespective of diagnosis, the stage of the disease is based on the level of kidney function: Stage Description GFR(mL/min/1.73 m(2)) 1 Kidney damage with normal or decreased GFR 90 2 Kidney damage with mild decrease in GFR 60-89 3 Moderate decrease in GFR 30-59 4 Severe decrease in GFR 15-29 5 Kidney failure <15 (or dialysis) 40 ---- RUN DATE: 03/09/11 [facility] NMI LIVE PAGE 1 RUN TIME: 1447 Specimen Inquiry RUN USER: INTERFACE -- Name: JESSI ANGUIANO [facility]#: [id number] Status: REG REF Re03/04/11 Age/Sex: 55/M Unit#: [id number] Location: [address] [place] [address]. : [birth year] -- Specimen: [id number] SOUT Spec Date: 03/04/[address]: Reymundo ceballos MD Spec Type: SURGICAL P Received: 03/04/11-1324 Copies to: Alex chirinos MD SPECIMEN BIOPSY MID SIGMOID NODULE HISTORY POST-OP DIAGNOSIS: Colonoscopy to cecum. Mild sigmoid diverticulosis. Sma ll polyp. CLINICAL INFORMATION: Postive family history. GROSS DESCRIPTION The specimen is received in formalin labelled Jessi Anguiano, Biopsy Mid Sigmoid Nodule, and consists of two fragments of brown tissue each measuring 0.5 x 0.2 x 0.2 cm. Submitted entirely, one cassette. DIAGNOSIS Mid sigmoid, biopsy: A. Tubular adenoma. B. No high grade dysplasia or malignancy. Signed Electronically by: CANDIS PACKER 03/09/11 1447 -- -- DEPARTMENT OF PATHOLOGY, [address] [place] [address] [facility] Permit #[id number] Nickolas Hassan M.D. Director Candis Packer M.D. [employer] Dir fitzgeraldor -- 41 CHOLESTEROL INTERPRETATION: Desirable: Less than 200 MG/DL Borderline-High Risk: 200-239 MG/DL High-Risk: 240 MG/DL and over 42 HDL INTERPRETATION: Undesirable: High Risk: Less than 40 MG/DL Desirable: Low Risk: Greater than 60 MG/DL 43 LDL INTERPRETATION: Low Risk Optimal Level: LDL Less than 100 MG/DL Near or Above Optimal: LDL 100-129 MG/DL Borderline High Risk: LDL 130-159 MG/DL High Risk: LDL 160-189 MG/DL Very High Risk: LDL Greater than 189 MG/DL 44 Anion gap measurement may be of limited value in the presence of any alkalosis, especially in a combined acid base disorder. . 45 Note change in reference range as of 12/01/07. The change was based on recommendations from the [place] [employer]. 46 Please note change in reference range effective 07 . 47 A metabolite of Naproxen, O-desmethylnaproxen, has been shown to interfere with the [place]piyush-Acres Green method for measuring total bilirubin. Samples from patients who have taken Naproxen have shown spurious elevation in total bilirubin levels. 48 Because ethnic data is not always readily available, this report includes an eGFR for both -Americans and non- Americans. The National Kidney Disease Education Program (NKDEP) does not endorse the use of the MDRD equation for patients that are not between the ages of 18 and 70, are , have extremes of body size, muscle mass, or nutritional status, or are non- or non-. According to the National Kidney Foundation, irrespective of diagnosis, the stage of the disease is based on the level of kidney function: Stage Description GFR(mL/min/1.73 m(2)) 1 Kidney damage with normal or decreased GFR 90 2 Kidney damage with mild decrease in GFR 60-89 3 Moderate decrease in GFR 30-59 4 Severe decrease in GFR 15-29 5 Kidney failure <15 (or dialysis) 49 IgG band(s) ([place]): p41 50 IgM band(s) ([place]): None Detected 51 Specific serologic response to B. burgdorferi is not detected, but cannot rule out early infection during which low or undetectable antibody levels to B. burgdorferi may be present. If clinically indicated, a new serum specimen should be submitted in 7-14 days. Western blot should only be ordered on specimens that are positive or equivocal by a FDA-licensed Lyme disease antibody screening test (e.g., EIA). CDC criteria require >=5 bands for IgG or >=2 bands for IgM for the Western blot to be considered positive. Test Performed by: [facility] Dpt of Lab Med and Pathology [address] [place] [address] Classroom Assistant: Lorenzo Au III, M.D. 52 Not diagnostic. Confirmatory test ordered. Test Performed by: [facility] Dpt of Lab Med and Pathology [address] [place] [address] Classroom Assistant: Lorenzo Au III, M.D. 53 Lymphopenia % 54 Please note: The following may produce a false positive D Dimer test: - Rheumatoid factor greater than 60 IU/ml - Plasma hemoglobin greater than 0.05 gm/dl - Bilirubin greater than 50 mg/dl - Lipids greater than 1000 mg/dl - FDP greater than 20 ug/ml . 55 Anion gap measurement may be of limited value in the presence of any alkalosis, especially in a combined acid base disorder. . 56 Note change in reference range as of 12/01/07. The change was based on recommendations from the [place] [employer]. 57 Please note change in reference range effective 07 . 58 FASTING 59 CHOLESTEROL INTERPRETATION: Desirable: Less than 200 MG/DL Borderline-High Risk: 200-239 MG/DL High-Risk: 240 MG/DL and over 60 HDL INTERPRETATION: Undesirable: High Risk: Less than 40 MG/DL Desirable: Low Risk: Greater than 60 MG/DL 61 LDL INTERPRETATION: Low Risk Optimal Level: LDL Less than 100 MG/DL Near or Above Optimal: LDL 100-129 MG/DL Borderline High Risk: LDL 130-159 MG/DL High Risk: LDL 160-189 MG/DL Very High Risk: LDL Greater than 189 MG/DL 62 Lymphopenia % 63 Anion gap measurement may be of limited value in the presence of any alkalosis, especially in a combined acid base disorder. . 64 Please note change in reference range effective 07 . Procedures Date Code Description Status 06/20/2017 78570 Sleep Study Unattended,HRT Rate,Oxygen Sat,Resp Completed Effort/Airflow 05/14/2016 54998111 Colonoscopy Completed 03/04/2011 [id number] Colonoscopy Completed 10/04/2009 38545 Screening Vision Test Completed 10/13/2007 58368 EKG Tracing & Interpretation Completed 02/27/2004 [id number] Colonoscopy Completed Encounters Type Date Location Provider Dx Diagnosis Office Visit 12/01/2017 Pulmonology And Jessica Goodman, G47.33 Obstructive sleep 8:15a [facility]- apnea (adult) [facility] (pediatric) R09.02 Hypoxemia Z68.36 Body mass index (BMI) 36.0-36.9, adult Office Visit 08/30/2017 Pulmonology And Jessica G47.33 Obstructive sleep 9:00a [facility] ROCHELLE Goodman RN, apnea (adult) [facility] JAKY (pediatric) R09.02 Hypoxemia Z68.37 Body mass index (BMI) 37.0-37.9, adult Office Visit 06/14/2017 8:30a [facility]ology [facility] Sleep Tami Patino, R06.83 [facility] E66.01 Morbid (severe) obesity due to excess calories G47.50 Parasomnia, unspecified Z68.39 Body mass index (BMI) 39.0-39.9, adult Office Visit 05/25/2017 8:30a [facility] Internal Alex Cantu E11.9 Type 2 diabetes Cyrus Layton M.D.,[facility] mellitus without [place] complications N52.9 Male erectile dysfunction, unspecified Office Visit 02/16/2017 3:00p [facility] Internal Alex Cantu Z00.01 Encounter for Cyrus Layton M.D.,[facility] general adult [place] medical exam w abnormal findings I10 Essential (primary) hypertension J32.4 Chronic pansinusitis F90.0 Attn-defct hyperactivity disorder, predom inattentive type R73.01 Impaired fasting glucose 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 Office Visit 07/17/2016 [facility] Internal Alex Cantu S22.31xA Fracture of one 2:40p Cyrus Layton M.D.,[facility] rib, right side, [address] init for clos fx Office Visit 06/02/2016 [facility] Alex Cantu I10 Essential 2:40p Cyrus Layton M.D.,[facility] (primary) [place] hypertension R73.01 Impaired fasting glucose E66.01 Morbid (severe) obesity due to excess calories M65.811 Other synovitis and tenosynovitis, right shoulder M25.561 Pain in right knee Office Visit 02/18/2016 3:00p [facility] Internal Alex Cantu Z00.01 Encounter for Cyrus Layton M.D.,[facility] general adult [place] medical exam w abnormal findings I10 Essential (primary) hypertension J32.4 Chronic pansinusitis Z11.59 Encounter for screening for other viral diseases E66.09 Other obesity due to excess calories Office Visit 02/14/2015 3:00p [facility] Internal Alex Cantu Z00.01 Encounter for Cyrus Layton M.D.,[facility] general adult [address] medical exam w abnormal findings I10 Essential (primary) hypertension J32.4 Chronic pansinusitis Z11.59 Encounter for screening for other viral diseases E66.09 Other obesity due to excess calories Office Visit 11/09/2013 10:00a [facility] Internal Oscar Ulrich 465.9 URI Upper Cyrus Braun M.D. Respiratory [place] Infections Acute Unspec Sites Office Visit 07/24/2013 12:10p [facility] Internal Alex Cantu 487.8 Influenza W / Other Medicine - [place], Manifestations Cuca Brown,[facility] Office Visit 11/30/2012 4:00p [facility] Alex Cantu 172.8 Malignant Melanoma Medicine Ashlyn Layton, Other Spec Sites [facility]uca Brown,[facility] Skin 607.84 Impotence Organic Origin Office Visit 10/05/2012 3:40p [facility] Internal Alex Cantu 473.8 Sinusitis Cyrus Layton M.D.,[facility] Chronic Other [place] 607.84 Impotence Organic Origin Office Visit 08/24/2012 8:50a [facility] Shawna Cantu V70.0 Examination Cyrus Layton M.D.,[facility] Routine AT Health Care Facility 314.00 Attention Deficit Disorder W/O Mention Of Hyperactivity 401.9 Hypertension Unspec 473.8 Sinusitis Chronic Other Office Visit 02/10/2012 [facility] Internal Tiff 461.0 Sinusitis Acute 12:30p Cyrus Nielsen N.P. Maxillary [place] Office Visit 06/15/2011 [facility] Shawna Layton, V70.0 Examination 10:30a Cyrus Goldberg M.D.,[facility] Routine AT Health Care Facility 401.9 Hypertension Unspec 314.00 Attention Deficit Disorder W/O Mention Of Hyperactivity 607.84 Impotence Organic Origin Office Visit 12/01/2010 1:00p DO Not Use Web Software Engineer Oscar Ulrich 465.9 URI Upper AT Jamie Braun M.D. Respiratory Infections Acute Unspec Sites Office Visit 06/11/2010 2:40p DO Not Use Web Software Engineer Kilo 466.0 Bronchitis Acute AT Jamie Mccullough M.D. Office Visit 11/06/2009 9:20a DO Not Use Web Software Engineer Rodolfo 473.[address] [facility] MD Oksana Irene 466.0 Bronchitis Acute Office Visit 10/04/2009 9:00a DO Not Use Varinder Cantu V70.0 Examination AT Jamie Layton M.D.,[facility] General Medical Routine AT Health Care Facility 314.00 Attention Deficit Disorder W/O Mention Of Hyperactivity 401.9 Hypertension Unspec V76.51 Special Screening For Malignant Neoplasms Colon 278.00 Obesity Unspec 473.8 Sinusitis Chronic Other V06.5 Tetanus Diphtheria (DT) Office Visit 06/18/2009 2:30p DO Not Use Web Software Engineer Eladia Painter PA 307.[address] [facility] Other 461.9 Sinusitis Acute Unspec Office Visit 02/14/2009 3:20p DO Not Use Web Software Engineer Alex Cantu 473.[address] [facility] Stephanie Layton,FACP Chronic Unspec 487.8 Influenza W/ Other Manifestations V04.81 Need For Prophylactic Vaccination & Inoculation/Influenza Office Visit 07/11/2008 9:40a DO Not Use Web Software Engineer Alex Cantu 459.30 Venous Hypertension AT Jamie Layton M.D.,FACP W/O Complications Chronic 782.1 Rash & Other Nonspec Skin Eruption Office Visit 05/29/2008 11:40a DO Not Use Web Software Engineer AT Alex Layton, 782.3 Edema [place]le Brown,FACP 682.6 Cellulitis & Abscess Leg Except Foot Office Visit 05/22/2008 11:20a DO Not Use Web Software Engineer AT AlexCody Layton, 782.[address] [facility] Stephanie,FACP 719.47 Pain Joint Ankle & Foot 453.40 Acute Venous Embolism & Thrombosis,Unspec Deep Vessels Lower Office Visit 03/29/2008 11:40a DO Not Use Web Software Engineer Alex Cantu 401.9 Hypertension AT Jamie Layton M.D.,FACP Unspec 473.9 Sinusitis Chronic Unspec Office Visit 11/28/2007 4:00p DO Not Use Web Software Engineer Alex Cantu 401.9 Hypertension AT Haub[place]trachelle Layton M.D.,FACP Unspec 314.00 Attention Deficit Disorder W/O Mention Of Hyperactivity 473.0 Sinusitis Chronic Maxillary Office Visit 11/11/2007 3:00p DO Not Use Web Software Engineer Makayla, 461.9 Sinusitis Acute AT Haubstadtrachelle Soares M.D. Unspec Office Visit 10/13/2007 10:00a DO Not Use Web Software Engineer Eladia Painter PA 401.[address] [facility] Unspec V77.91 Screening For Lipoid Disorders Office Visit 08/30/2007 2:20p DO Not Use Web Software Engineer Alex Cantu 473.1 Sinusitis AT Jamie Layton M.D.,FACP Chronic Frontal 477.8 Rhinitis Allergic Due To Other Allergen Plan of Treatment Future Appointment(s):12/05/2018 8:15 am - Jessica Goodman DNP, RN, ANANDA-BC at [facility]09/19/2018 8:40 am - Boni Sanchez NP at [facility] Medicine - [id number]/25/2019 - Jessica Goodman DNP, RN, [employer]ER- BCG47.33 Obstructive sleep apnea (adult) (pediatric)New Orders:Sleep-Homecare, Ordered: 06/06/18Comments:Sleep Apnea - 06/20/17 HST AHI 62.9/hour, yanni oxygen 72 % wt 243# ON CPAP auto AHI 3.5/hour, normal, very large leakFollow up:6 monthsRecommendations:Continue PAP device, Benefitting and compliant with treatment. Cleaning Wipe off mask daily (baby wipe-no scent, or warm water) Clean mask, tubing, filter, and water chamber weekly in mild no scent dish soap and water. Hang to dry. Change auto setting to 6-8 cm with repeat pulse oximetry due to large leak. If you have any sleepiness while driving you MUST avoid operating a vehicle or machinery. If you have difficulty with your equipment, or need to replace your mask or hoses, please contact [facility]. A weight change of 20 pounds or more may have an effect on your equipment; if you are experiencing problems please call for an appointment. If you have any further questions, please call the [facility] at .R09.02 HypoxemiaNew Orders:Pulse Oximetry Overnight, Ordered: Recommendations:Pulse oximetry on BiPAP 6-8 cm, after change and seal improved. Will send order to [facility] Call 1 week after for results.Z68.35 Body mass index (BMI) 35.0-35.9, adultRecommendations:Continue with weight loss efforts
--- OUTSIDE RECORDS SUMMARY | 2018-06-20 10:28 | XMS REPORT | Continuity of Care Document ---
:1955 External Reference #:[id number] Author Name Jessi Pineda Care Team Providers Name Role Phone Patient's Choice Primary Care Physician Unavailable Payers Date Identification Numbers Payment Provider Subscriber Effective: 2014 Policy Number: [id number] BS Facets Yeceniagagan Anguiano PayID: [id number] [address] [address] [place] Rocha [address] Expires: 2011 Policy Number: [id number] [facility] Ppo Yecenia Annmarie PayID: [id number] [address] [address] [place] [address] Advance Directives Description No Information Available Problems [...] M.D.,FACP Onset: 02/18/2016 Immunodeficiency disorder Jackie Weaver M.D.,FACP Onset: 08/30/2017 Obstructive sleep apnea syndrome Jessica Goodman DNP, RN, Active DRILLING ASSISTANT-BC Onset: 08/30/2017 Body mass index 30+ - obesity Jessica Goodman DNP, RN, Active DRILLING ASSISTANT-BC Onset: 12/01/2017 Hypoxemia Jessica Goodman DNP, RN, Active DRILLING ASSISTANT-BC Onset: 08/30/2007 Chronic frontal sinusitis Alex Layton, Inactive DOREEN Brown Inactive: 08/24/2012 Onset: 02/10/2012 Acute maxillary sinusitis Tiff Nielsen NLiliana Inactive Inactive: 08/24/2012 Onset: 06/02/2016 Impaired fasting glycaemia Alex Layton M.D.,CHEIKHP Inactive Inactive: 05/13/2017 Family History Date Family [...] Lives With Son Occupation Currently Working at [employer] Tobacco Use Start: Unknown Never Smoked Cigarettes ETOH Use 02/18/2016 Drinks Alcoholic Beverages Rarely Recreational Drug Use Denies Drug Use Tobacco Use Start: Unknown Patient has never smoked Smoking Status Reviewed: 05/31/18 Patient has never smoked Exercise Type/Frequency Exercises regularly Exercise Type/Frequency Walks 5 times a week At least 5x per week Allergies, Adverse Reactions, Alerts Date Description Reaction Status Severity Comments 06/15/2011 [place] severe sinus reaction Active 10/05/2012 Augmentin headache, nausea Active 08/30/2007 NKDA Inactive Medications Medication Date Status Form Strength Qnty SIG Indications Ordering Provider Shingrix 05/31 Active Suspension 50mcg/0.5 2unit 0.5ml Z23 Boni /2019 Rec ML s intramuscul [place] Sanchez ar, repeat 2-6 months later Naproxen 06/02 Active Tablets 500mg 60tab then as s olamide Layton M.D.,FACP Benadryl 06/02 Active Tablets 25mg 180ta 1-2 tabs 3x bs a day as Pepe Layton, needed M.D.,FACP Lactase Enzyme 06/02 Active Tablets 3000Unit 90tab 3 tabs by Alex s mouth Pepe Layton, before M.D.,FACTerri meals Pseudoephedrine 06/02 Active Tablets 60mg 60tab 1 tab by Alex s mouth bid Pepe Layton, as needed M.D.,FACP Blood Pressure 06/14 Active Kit 1unit self-monito I10 Alex Kit s ring Pepe Layton, required M.D.,FACP Lisinopril 06/14 Active Tablets 5mg 30tab take one I10 Alex s tablet by Pepe Layton, mouth every M.D.,FACP day Mucinex 10/04 Active Tablets ER 600mg 60tab 1 by mouth 12HR s bid Pepe Layton M.D.,FACP Adderall XR Active Caps ER 20mg 180ca 1 by mouth Boni 24HR ps twice a day [place] Sanchez code b Calcium Active Tablets 400-500mg 180ta 2 tablets Alex 400/Vitamin D3 / -Unit bs by mouth Pepe Layton, daily [place].Pepe,FACP Move Free Active Tablets 500-400mg 180ta 2 tabs by Alex / bs mouth daily Pepe Layton M.D.,CHEIKHP Mens 50+ Multi Active Tablets 90tab 1 tab po qd Alex Vitamin & / s Pepe Layton Mineral Formula Stephanie,FACP Jose Manuel-E Complete Active Tablets DR 400mg 90tab 1 by mouth s every day Pepe Layton M.D.,FACP Magnesium Active Tablets 250mg 90tab 1 by mouth s every day Pepe Layton M.D.,CHEIKHP Coq-10 Active Capsules 100mg 90cap 1 by mouth s every day Pepe Layton M.D.,FACP Levocetirizine Active Tablets 5mg 1 po daily Unknown Dihydrochloride Montelukast Active Tablets 10mg 1 po daily Unknown Sodium Hyqvia Active Kit 10GM/100M SC monthly Unknown L Esomeprazole Active Capsules DR 20mg 1 by mouth Unknown Magnesium every day Glucosamine Active 2 po daily Unknown Chondroitin With MSM Qnasl Active Aerosol 80mcg/Act Saunders, Dequan bolton MD Beano Active Tablets prn Unknown Strattera Active Capsules 60mg 30cap take 1 s capsule by Pepe Layton, mouth every M.D.,[facility] evening Staxyn 05/25 Hx Tablets 10mg 10tab 1 tab by Dispers s mouth every DMoo Layton, - day as M.DMoo,[facility] 08/29 Viagra 03/05 Hx Tablets 100mg 10tab by mouth N52.9 s 0.5 or 1 D. Kinjal, - tab 1h M.DMoo,[facility] 05/25 intercourse Staxyn 02/16 Hx Tablets 10mg 10tab 1 tab po qd N52.9 Dispers s prn Ashlyn Rizzo M.D.,[facility] 03/05 Nexium 24HR 12/[address] 20mg 90cap 1 po qd Alex Clear Minis Ashlyn Fajardo M.D.,[facility] 08/29 Hydrocodone-Acet 07/17 Hx Tablets 5-325mg 30tab 1 by mouth Alex aminophen s every 4-6 D. Kinjal, - hours prn. MNitin,[facility] 02/16 Zithromax Z-Moi 11/09 Hx Tablets 250mg 1Pack as per 465.9 Oscar Ulrich /2013 Ashlyn Frode M.D. 02/14 Tamiflu 07/24 Hx Capsules 75mg 10cap 1 by mouth 487.8 s twice a day Pepe Layton, - x 5 days M.Pepe,[facility] 02/14 Zostavax 03/06 Hx Solution 90336Mcw/ 1unit 1 dose s/c Rec 0.65ML s Ashlyn Rizzo M.D.,[facility] 07/24 Levofloxacin 10/05 Hx Tablets 500mg 10tab 1 po qd 473.8 s Ashlyn Rizzo M.D.,[facility] 11/30 Staxyn 10/05 Hx Tablets 10mg 10tab 1 tab prn 607.84 Dispers s Ashlyn Rizzo M.D.,[facility] 02/14 Augmentin 08/24 Hx Tablets 875-125mg 20tab 1 tablet 473.8 s bid po x Pepe Layton, - 10days Stephanie,[facility] 10/05 Calcium 1200 06/02 Hx Chewtabs 9183-5800 90uni 1 po qd mg-Unit ts Ashlyn iRzzo M.D.,[facility] 11/09 MSM 06/02 Hx Capsules 1000mg 90cap 1 by mouth s every day Ashlyn Rizzo M.D.,[facility] 02/14 Glucosamine HCL 06/02 Hx Tablets 1500mg Ashlyn Rizzo M.D.,[facility] 02/14 Chondroitin 06/02 Hx Capsules 1200mg 90cap 1 tab by Alex s mouth every Pepe Layton, - day MNitin,[facility] 02/14 Ibuprofen 06/02 Hx Tablets 400mg 100ta by mouth bs every 4 to Pepe Layton, - 6 hours as Stephanie,[facility] 07/17 Famotidine 06/02 Hx Tablets 20mg 60tab take one s tablet by Pepe Layton, - mouth as Stephanie,[facility] 02/16 needed [place]-3 Krill 06/02 Hx Capsules 300mg 90cap 1 by mouth Alex s every day Ashlyn Rizzo M.D.,[facility] 02/17 Tums E-X 750 06/02 Hx Chewtabs 750mg 120un 2-4 by its mouth every DMoo Layton, - day as Stephanie,[facility] 02/14 Amoxicillin/Pota 02/09 Hx Tablets 875-125mg 20tab take one 461.0 Tiff ssium s tablet [place]-W Clavulanate - twice daily atson, 02/19 for 10 days N.P. /2011 Aspirin Ec 06/[address] 81mg 90tab 1 tablet by Alex Rico-Dose /2011 s mouth once Pepe Layton - daily Stephanie,[facility] 02/14 Cialis 06/14 Hx Tablets 20mg 10tab 1/2- 1 prn 607.84 s as directed Ashlyn Rizzo M.D.,[facility] 10/05 Amoxicillin/Clav 06/11 Hx Tablets 875-125mg 20tab 1 po bid 466.0 Kilo kraftanate s Pachikara Cheri Goldberg M.D. 12/01 Doxycycline 11/06 Hx Capsules 100mg 20cap 1 po bid 473.8 Sivananda wes s Teto, - 06/11 Augmentin 07/09 Hx Tablets 875-125mg 28tab 1 bid x 14 s day Ashlyn Rizzo M.D.,[facility] 08/19 Azithromycin 06/18 Hx Tablets 500mg 10tab 1 tab qd 461.9 s for 10 days Ashlyn Rizzo M.D.,[facility] 07/09 Tamiflu 02/14 Hx Capsules 75mg 10cap 1 po qday x s 5 days Ashlyn Rizzo M.D.,[facility] 05/15 Terbinafine HCL 07/20 Hx Cream 1% Ashlyn Rizzo M.D.,[facility] 10/04 Naftin 07/11 Hx Cream 1% 30G topically 782.1 qd for 2 D. Ashlyn Layton M.D.,[facility] 07/20 Maged Stockings 07/11 Hx 2unit bilateral, 459.30 s knee high, Pepe Layton, - 12-15 mmhgStephanie,[facility] 02/14 open toe Doxycycline 06/12 Hx Capsules 100mg 42cap bid PO Alex cl s Ashlyn Rizzo M.D.,[facility] 07/11 Levaquin 05/31 Hx Tablets 500mg 7tabs 1 po qd x 7 Ashlyn Acevedo M.D.,[facility] 06/12 Ceftin 05/29 Hx Tablets 500mg 20tab po bid for 782.3 s 10 days Ashlyn Rizzo M.D.,[facility] 08/19 Lasix 05/22 Hx Tablets 20mg 15tab po every am 782.3 Ashlyn Fajardo M.D.,[facility] 05/29 Lisinopril 05/18 Hx Tablets 10mg 14tab 1 tablet po 401.9 s qd Ashlyn Rizzo M.D.,[facility] 06/14 Bystolic 03/29 Hx Tablets 5mg 90tab 1 po qd 401.9 Ashlyn Fajardo M.D.,[facility] 05/18 Clarinex 11/27 Hx Tablets 5mg 90tab take one s tablet by Pepe Layton, - mouth once M.DMoo,[facility] 02/14 Zithromax 11/24 Hx Tablets 500mg 1pack Z-pack; use Oscar Ulrich per Aparna - ilana MNitin 12/01 Ceftin 11/10 Hx Tablets 250mg 20tab 1 tab po s bid x 10 , Fany, - fadumo Brown 11/27 Lopressor 10/12 Hx Tablets 25mgM 60tab 1 bid 401.9 s Fany - M.D. 03/29 Clarinex-D 12 09/05 Hx Tablets ER 2.5-120 60tab bid PO prn 12HR Ashlyn Fajardo M.D.,[facility] 11/27 Omnaris 08/29 Hx Suspension 50mcg/Act 3Mon 1-2 sprays 473.1 each rudy Pepe Layton, - every day M.DMoo,[facility] 02/14 Zyrtec-D Hx Tablets ER 5-120mg 60tab 1 tab bid Alex / 12HR s Ashlyn Rizzo M.D.,[facility] 09/05 dosage change Patanol Hx Solution 0.1% 3Bott 1-2gtts Alex / ls both eyes Pepe Layton, - every day Stephanie,FACP 02/17 twice a day as needed Digestive Hx Capsules 90cap 1 by mouth Alex Support / s every day Ashlyn Rizzo M.D.,FACP 08/29 Alrex Hx Suspension 0.2% 1unit use as Alex / s directed Ashlyn Rizzo M.D.,[facility] 02/14 Dulera Hx Aerosol 100-5mcg/ 2 puff Unknown /0000 Act twice a day - 02/16 Immunizations CPT Code Status Date Vaccine Lot # [id number] Given 02/16/2017 Influenza Virus Vaccine, Quadrivalent, Split, Preservative Free 38133 Given 01/17/2016 Influ Virus Vaccine, Quadrivalent, Split [place], [place] [address] Given 01/31/2015 Flu Vaccine Split Virus Preservative Free For Indiv 3Yr Older 33757 Given 02/10/2013 Zoster (Zostavax) 08333 Given 02/10/2013 Flu Vaccine Split Virus Preservative Free For Indiv 3Yr Older 25397 Given 02/21/2012 Influenza Virus 3Yrs & Over 51437 Given 02/20/2011 Influenza Virus 3Yrs & Over 95425 Given 10/04/2009 Tdap - Tetanus/Diptheria/Acellular Pertussis [id number] 67972 Given 02/14/2009 Influenza Virus Vaccine, Pandemic Formulation [id number] 49072 Given 02/14/2009 Administration Swine Flu Shot Vital Signs Date Vital Result Comment 05/31/2018 8:45am Height 68 inches 5'8" Weight [...] Result H/L Range Note Lipid Profile 03/18/2018 [facility] Triglycerides 42 mg/dL 1, 2 (Trig/Chol/HDL) [address] [place] [address] [phone] Cholesterol 147 mg/dL 3 HDL Cholesterol 35.2 mg/dL 4 LDL Cholesterol 103 mg/dL 5 Basic Metabolic Panel 03/18/2018 [facility] Sodium 141 mmol/L N 135-145 [address] [place] [address] [phone] Potassium 4.3 mmol/L N 3.5-5.0 Chloride 107 mmol/L N 101-111 Co2 Carbon Dioxide 29 mmol/L N 22-32 Anion Gap 5 mmol/L N 2-11 Glucose 98 mg/dL N 70-100 Blood Urea Nitrogen 20 mg/dL N 6-24 Creatinine 0.81 mg/dL N 0.67-1.17 BUN/Creatinine Ratio 24.7 High 8-20 Calcium 8.9 mg/dL N 8.6-10.3 Egfr Non- 97.2 >60 Egfr 117.6 >60 6 Laboratory test 03/18/2018 [facility] Hemoglobin A1c 5.8 % High 4.0-5.6 7 finding [address] [facility] (Glyco HGB) [place] [address] [phone] Liver Function 10/20/2017 [facility] Total Protein 6.4 g/dL N 6.4-8.9 Panel [address] [place] [address] [phone] Albumin 3.9 g/dL N 3.2-5.2 Globulin 2.5 g/dL N 2-4 Albumin/Globulin Ratio 1.6 N 1-3 Total Bilirubin 0.80 mg/dL N 0.2-1.0 Direct Bilirubin 0.20 mg/dL High 0.03-0.18 Indirect Bilirubin 0.6 mg/dL N 0.3-1.0 Alkaline Phosphatase 99 U/L N 34-104 Alt 22 U/L N 7-52 Ast 22 U/L N 13-39 Immunoglobulins 10/20/2017 [facility] Immunoglobulin G 1120 767 - 8 Serum Quant [address] [facility] mg/dL [address] [place] [address] [phone] Immunoglobulin M 115 mg/dL 37 - 286 Immunoglobulin A 186 mg/dL 61 - 356 Laboratory test 10/20/2017 [facility] Hemoglobin A1c 6.4 % High 4.0-5.6 9, [address] (Glyco HGB) [place] [address] [phone] Urine 05/25/2017 [facility] Ur Microalbumin < 15.0 11 Microalbumin 101 (mg/L) mg/[place] [address] [phone] Urine Creatinine 179.69 mg/dL Urine Microalbumin/Creatinine TNP ug/mg <31 12 Laboratory test 05/11/2017 [facility] Glucose 133 mg/dL High 70-100 13, [address] [place] [address] [phone] Hemoglobin A1c (Glyco HGB) 7.2 % High 4.0-5.6 15 Basic Metabolic Panel 02/15/2017 [facility] Sodium 138 mmol/L N 133-[address] [place] [address] [phone] Potassium 4.1 mmol/L N 3.5-5.0 Chloride 104 mmol/L N 101-111 Co2 Carbon Dioxide 30 mmol/L N 22-32 Anion Gap 4 mmol/L N 2-11 Glucose 137 mg/dL High 70-100 Blood Urea Nitrogen 18 mg/dL N 6-24 Creatinine 0.94 mg/dL N 0.67-1.17 BUN/Creatinine Ratio 19.1 N 8-20 Calcium 8.7 mg/dL N 8.6-10.3 Egfr Non- 82.1 N >60 Egfr 105.6 N >60 16 Lipid Profile 02/15/2017 [facility] Triglycerides 86 mg/dL N 17 (Trig/Chol/HDL) [address] [place] [address] [phone] Cholesterol 157 mg/dL N 18 HDL Cholesterol 30.8 mg/dL N 19 LDL Cholesterol 109 mg/dL N 20 CBC Auto Diff 02/15/2017 [facility] White Blood 9.1 10^3/uL N 3.5-10.[address] [place] [address] [phone] Red Blood Count 5.22 10^6/uL N 4.0-5.4 [...] Cells % 0 N Laboratory test 05/14/2016 [facility] Surgical SEE RESULT [address] [place] [address] [phone] Laboratory test 03/23/2016 [facility] Glucose 96 mg/dL N 70- [address] [place] [address] [phone] Hemoglobin A1c (Glyco HGB) 6.2 % High Less than 6.0 23 Lipid Profile 02/14/2016 [facility] Triglycerides 144 mg/dL N 24 (Trig/Chol/HDL) [address] [place] [address] [phone] Cholesterol 161 mg/dL N 25 HDL Cholesterol 33.3 mg/dL N 26 LDL Cholesterol 99 mg/dL N 27 Basic Metabolic Panel 02/14/2016 [facility] Sodium 139 mmol/L N 133-[address] [place] [address] [phone] Potassium 4.2 mmol/L N 3.5-5.0 Chloride 106 mmol/L N 101-111 Co2 Carbon Dioxide 29 mmol/L N 22-32 Anion Gap 4 mmol/L N 2-11 Glucose 125 mg/dL High 70-100 Blood Urea Nitrogen 15 mg/dL N 6-24 Creatinine 0.99 mg/dL N 0.67-1.17 BUN/Creatinine Ratio 15.2 N 8-20 Calcium 8.8 mg/dL N 8.6-10.3 Egfr Non- 77.6 N >60 Egfr 99.9 N >60 28 Liver Function 02/14/2016 [facility] Total Protein 6.6 g/dL N 6.4-8.[address] [place] [address] [phone] Albumin 3.8 g/dL N 3.2-5.2 Globulin 2.8 g/dL N 2-4 Albumin/Globulin Ratio 1.4 N 1-3 Total Bilirubin 0.60 mg/dL N 0.2-1.0 Direct Bilirubin 0.10 mg/dL N 0.03-0.18 Indirect Bilirubin 0.5 mg/dL N 0.3-1.0 Alkaline Phosphatase 79 U/L N 34-104 Alt 30 U/L N 7-52 Ast 26 U/L N 13-39 Immunoglobulins 02/14/2016 [facility] Immunoglobulin G 1120 N 767 - 29 Serum Quant [address] [facility] mg/dL [address] [place] [address] [phone] Immunoglobulin M 109 mg/dL N 37 - 286 Immunoglobulin A 228 mg/dL N 61 - 356 Basic Metabolic Panel 05/16/2015 [facility] Sodium 136 mmol/L N 133-[address] [place] [address] [phone] Potassium 3.9 mmol/L N 3.5-5.0 Chloride 104 mmol/L N 101-111 Co2 Carbon Dioxide 27 mmol/L N 22-32 Anion Gap 5 mmol/L N 2-11 Glucose 154 mg/dL High 70-100 Blood Urea Nitrogen 16 mg/dL N 6-24 Creatinine 0.92 mg/dL N 0.67-1.17 BUN/Creatinine Ratio 17.4 N 8-20 Calcium 8.9 mg/dL N 8.6-10.3 Egfr Non- 84.8 N >60 Egfr 109.1 N >60 30 Laboratory 05/16/2015 [facility] Hepatitis C Nonreactive N Nonreactive test finding [address] [place] [address] [phone] Basic 08/25/2012 [facility] Sodium 141 mmol/L 133-145 Metabolic [address] [facility] [place] [address] [phone] Potassium 4.3 mmol/L 3.5-5.0 Chloride 104 mmol/L 101-111 Co2 Carbon Dioxide 31.0 mmol/L 22-32 Anion Gap 6.0 mmol/L 2-11 Glucose 100 mg/dL 70-100 Blood Urea Nitrogen 15 mg/dL 6-24 Creatinine 1.00 mg/dL 0.50-1.40 BUN/Creatinine Ratio 15.0 8-20 Calcium 8.9 mg/dL 8.1-9.9 Egfr Non- 77.6 >60 Egfr 99.8 >60 31 Lipid Profile 08/25/2012 [facility] Triglycerides 72 mg/dL 40 -200 (Trig/Chol/HDL) [address] [place] [address] [phone] Cholesterol 164 mg/dL Less than 200 HDL Cholesterol 34 mg/dL Low 40-60 32 Cholesterol/HDL Ratio 4.8 Average High 1-4.44 LDL Cholesterol 115.6 mg/dL High Less Than 100 33 Lipid Profile 06/12/2011 [facility] Triglyceride 56 mg/dL 40- 200 (Trig/Chol/HDL) [address] [place] [address] [phone] Cholesterol 164 mg/dL Less Than 200 34 High Density Lipoprotein 30 mg/dL Low 40-60 35 Cholesterol/HDL Ratio 5.47 AVERAGE High 1-4.97 Low Density Lipoprotein 123 mg/dL High Less Than 100 36 Comp Metabolic Panel 06/12/2011 [facility] Sodium 138 mmol/L 135-145 [address] [place] [address] [phone] Potassium 4.1 mmol/L 3.5-5.0 Chloride 103 mmol/L [...] > 60 39 CBC With Manual 06/12/2011 [facility] White Blood 7.9 CUMM 4.8-10.[address] [place] [address] [phone] Red Cell Count 5.30 CUMM 4.6-6.2 Hemoglobin [...] Count 6.0 RBC Morphology NORMAL Surgical 03/04/2011 [facility] Surgical [address] Pathology <SEE NOTE> [place] [address] [phone] Lipid Profile 10/08/2009 [facility] Triglyceride 78 mg/dL 40 - (Trig/Chol/HD [address]) [place] [address] [phone] Cholesterol 194 mg/dL Less Than 200 41 High Density Lipoprotein 29 mg/dL Low 40-60 42 Cholesterol/HDL Ratio 6.69 AVERAGE High 1-4.97 Low Density Lipoprotein 149 mg/dL High Less Than 100 43 Comp Metabolic Panel 10/08/2009 [facility] Sodium 135 mmol/L 135-[address] [place] [address] [phone] Potassium 4.3 mmol/L 3.5-5.0 Chloride 103 mmol/L [...] > 60 48 CBC With Manual 10/08/2009 [facility] White Blood 9.0 CUMM 4.8-10.[address] [place] [address] [phone] Red Cell Count 5.24 CUMM 4.6-6.2 Hemoglobin [...] 0-6 Absolute Neutrophil Count 6.7 Anisocytosis SLIGHT CBC With 06/08/2008 [facility] White Blood 9.7 CUMM 4.8-10.8 Electronic Diff [address] [place] [address] [phone] Red Cell Count 5.11 CUMM 4.6-6.2 Hemoglobin [...] Eosinophils 0.2 0-0.6 Abs Basophils 0 0-0.2 49 Lyme Western 06/08/2008 [facility] Lyme Disease Negative Negative 50 Blot Specialty [address] [place] [address] [phone] [phone] Lyme Disease Igm Western Blot Negative Negative 51 Lyme Disease Interpretation . () 52 Laboratory test 06/08/2008 [facility] C Reactive 1.5 mg/dL High Less Than finding [address] Protein 0.5 [place] [address] [phone] Lyme Disease Serology Positive Negative 53 Laboratory test 05/22/2008 [facility] D Dimer 573 NG/ML High < 230 [address] Quantitative [place], [place] [address] [phone] Comp Metabolic 05/22/2008 [facility] Sodium 140 135-[address] mmol/[place] [address] [phone] Potassium 3.8 mmol/L 3.5-5.0 Chloride 105 mmol/L [...] (Sgot) 35 U/L 12-42 CBC With 05/22/2008 [facility] White Blood 10.9 CUMM High 4.8- 10.8 Manual Diff [address] [place] [address] [phone] Red Cell Count 4.90 CUMM 4.6-6.2 Hemoglobin [...] Count 8.3 Anisocytosis SLIGHT Laboratory test 05/22/2008 [facility] Uric Acid 5.2 mg/dL 2.6 -7.[address] [place] [address] [phone] Erythrocyte Sed Rate 18 MM/HR 0-20 C Reactive Protein 4.2 mg/dL High Less Than 0.5 Lipid Profile 10/17/2007 [facility] Triglyceride 120 mg/dL 40 -200 58 (Trig/Chol/HDL) [address] [place] [address] [phone] Cholesterol 185 mg/dL Less Than 200 59 High Density Lipoprotein 27 mg/dL Low 40-60 60 Cholesterol/HDL Ratio 6.85 AVERAGE High 1-4.97 Low Density Lipoprotein 134 mg/dL High Less Than 100 61 CBC With 10/17/2007 [facility] White Blood 9.2 CUMM 4.8-10.8 Electronic Diff [address] [place] [address] [phone] Red Cell Count 5.43 CUMM 4.6-6.2 Hemoglobin [...] 0 0-0.2 62 Basic Metabolic Panel 10/17/2007 [facility] Sodium 139 mmol/L 135-[address] [place] [address] [phone] Potassium 3.7 mmol/L 3.5-5.0 Chloride 107 mmol/L [...] in selective patients <6.0%. Please refer to [employer] diabetic care guidelines for further information. 8 Test Performed by: [address] [id number] PLEASE FAX RESULTS TO: [phone] Therapeutic target for the treatment of diabetes mellitus patients is <7% HBA1C, and in selective patients <6.0%. Please refer to [employer] diabetic care guidelines for further information. 11 [id number] Unable to calculate due to low microalbumin 13 FASTING 10 HR 14 FASTING 10 HR 15 Therapeutic target for the treatment of diabetes mellitus patients is <7% HBA1C, and in selective patients <6.0%. Please refer to [employer] diabetic care guidelines for further [...] [address]: Reymundo Boston MD Acct: [id number] Unit: [id number] AGE: 60 Location: ENDO Re05/14/16 SEX: M Status: DEP REF SPEC: [id number] COTY: 05/14/16 [facility] DR: Reymundo Boston MD REQ: [id number] RECD: 05/14/161158 STATUS: KERRY NUNEZ DR: Alex Layton MD [...] performed at Main Lab DEPARTMENT OF PATHOLOGY, [address] [place] [address] Nickolas Hassan M.D. Director [facility] # [id number] RUN DATE: 05/15/16 [facility] LAB LIVE PAGE 2 Patient: JESSI ANGUIANO [id number] (Continued) GROSS DESCRIPTION (Continued) GROSS DESCRIPTION (Continued) of a 0.8 x 0.5 x 0.2 cm aggregate of mariee-white irregular to polypoid soft tissue fragment, which are entirely submitted in one cassette. Signed (signature on file) Radha Heath MD 06/26 1305 END OF REPORT * ML=Testing performed at Main Lab DEPARTMENT OF PATHOLOGY, [address] [place] [address] Nickolas Hassan M.D. Director [facility] # [id number] 22 FASTING 23 Therapeutic target for the treatment of diabetes Mellitus patients is <7% HBA1C, and in selective patients <6.0%.Please refer to [employer] Diabetic care guidelines for further [...] <15 (or dialysis) 29 Test Performed by: [address] [address] Dental Technician Apprentice: Antione Black II, M.D., Ph.D. 30 Because [...] (or dialysis) 40 ---- RUN DATE: 03/09/11 [facility] NMI LIVE PAGE 1 RUN TIME: 1447 Specimen Inquiry RUN USER: INTERFACE -- Name: JESSI ANGUIANO Status: REG REF Re03/04/11 Age/Sex: 55/M Unit#: [id number] Location: [address] [place] [address]. : 59 -- Specimen: [id number] SOUT Spec Date: 03/04/[address]: Reymundo ceballos MD Spec Type: SURGICAL P Received: 03/04/11-8368 Copies to: Alxe chirinos MD SPECIMEN BIOPSY MID SIGMOID NODULE [...] 03/09/11 1447 -- -- DEPARTMENT OF PATHOLOGY, [address] [place] [address] [facility] Permit #[id number] Nickolas Hassan M.D. Director Candis Packer M.D. Clinical Social Work Aide Dir manuelito -- 41 CHOLESTEROL INTERPRETATION: Desirable: Less than [...] change was based on recommendations from the [employer]. 46 Please note change in [...] 5 Kidney failure <15 (or dialysis) 49 Lymphopenia % 50 IgG band(s) ([place]): p41 51 IgM band(s) ([place]): None Detected 52 Specific serologic response to B. burgdorferi is [...] to be considered positive. Test Performed by: [facility] Dpt of Lab Med and Pathology [address] [place] [address] Dental Technician Apprentice: Lorenzo Au III, M.D. 53 Not diagnostic. Confirmatory test ordered. Test Performed by: [facility] of [facility] Med [facility] Pathology [address] [place] [address] Dental Technician Apprentice: Lorenzo Au III, M.D. 54 Please note: The following may produce [...] change was based on recommendations from the [employer] [place] [employer]. 57 Please note change in [...] . Procedures Date Code Description Status 06/20/2017 06938 Sleep Study Unattended,HRT Rate,Oxygen Sat,Resp Completed Effort/Airflow 05/14/2016 [id number] Colonoscopy Completed 03/04/2011 [id number] Colonoscopy Completed 10/04/2009 59596 Screening Vision Test Completed 10/13/2007 12617 EKG Tracing & Interpretation Completed 02/27/2004 [id number] Colonoscopy Completed Encounters Type Date Location Provider Dx Diagnosis Office Visit 12/01/2017 Pulmonology And Jessica Goodman, G47.33 Obstructive sleep 8:15a [facility]UDIA [facility], [facility]- apnea (adult) [facility] (pediatric) R09.02 Hypoxemia Z68.36 Body mass index (BMI) 36.0-36.9, adult Office Visit 08/30/2017 Pulmonology Bartolo Lopez G47.33 Obstructive sleep 9:00a [facility] ROCHELLE Goodman, CLAUDIA, apnea (adult) [facility] DRILLING ASSISTANT- (pediatric) R09.02 Hypoxemia Z68.37 Body mass index (BMI) 37.0-37.9, adult Office Visit 06/14/2017 8:30a Pulmonology And Sleep Tami Patino, R06.83 [facility] E66.01 Morbid (severe) obesity due to excess calories G47.50 Parasomnia, unspecified Z68.39 Body mass index (BMI) 39.0-39.9, adult Office Visit 05/25/2017 8:30a [facility] Internal Alex Cantu E11.9 Type 2 diabetes Cyrus - Stephanie Layton,FACP mellitus without [place] complications N52.9 Male erectile dysfunction, unspecified Office Visit 02/16/2017 3:00p [facility] Internal Alex Cantu Z00.01 Encounter for Cyrus Layton M.D.,[facility] general adult [place] medical exam w abnormal findings I10 Essential (primary) hypertension J32.4 Chronic pansinusitis F90.0 Attn-defct hyperactivity disorder, predom inattentive type R73.01 Impaired fasting glucose 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 Office Visit 07/17/2016 [facility] Internal Alex Cantu S22.31xA Fracture of one 2:40p Cyrus Layton M.D.,[facility] rib, right side, [address] init for clos fx Office Visit 06/02/2016 [facility] Internal Alex Cantu I10 Essential 2:40p Cyrus Layton M.D.,[facility] (primary) [place] hypertension R73.01 Impaired fasting glucose E66.01 Morbid (severe) obesity due to excess calories M65.811 Other synovitis and tenosynovitis, right shoulder M25.561 Pain in right knee Office Visit 02/18/2016 3:00p [facility] Internal Alex Cantu Z00.01 Encounter for Cyrus Layton M.D.,[facility] general adult [place] medical exam w abnormal findings I10 Essential (primary) hypertension J32.4 Chronic pansinusitis Z11.59 Encounter for screening for other viral diseases E66.09 Other obesity due to excess calories Office Visit 02/14/2015 3:00p [facility] Internal Alex Cantu Z00.01 Encounter for Cyrus Layton M.D.,[facility] general adult [address] medical exam w abnormal findings I10 Essential (primary) hypertension J32.4 Chronic pansinusitis Z11.59 Encounter for screening for other viral diseases E66.09 Other obesity due to excess calories Office Visit 11/09/2013 10:00a [facility] Internal Oscar Ulrich 465.9 URI Upper Cyrus Braun M.D. Respiratory [place] Infections Acute Unspec Sites Office Visit 07/24/2013 12:10p [facility] Internal Alex Cantu 487.8 Influenza W / Other Juan Sun M.D.,[facility] Office Visit 11/30/2012 4:00p [facility] Internal Alex Cantu 172.8 Malignant Melanoma [facility] Kin[place]al, Other Spec Sites [place] Stephanie,[facility] Skin 607.84 Impotence Organic Origin Office Visit 10/05/2012 3:40p [facility] Internal Alex Cantu 473.8 Sinusitis Cyrus Layton M.D.,[facility] Chronic Other [place] 607.84 Impotence Organic Origin Office Visit 08/24/2012 8:50a [facility] Internal Alex Cantu V70.0 Examination Cyrus Layton M.D.,[facility] Routine AT Health Care Facility 314.00 Attention Deficit Disorder W/O Mention Of Hyperactivity 401.9 Hypertension Unspec 473.8 Sinusitis Chronic Other Office Visit 02/10/2012 [facility] Internal Tiff 461.0 Sinusitis Acute 12:30p Cyrus Nielsen N.P. [facility] Office Visit 06/15/2011 [facility] Internal Alex Layton, V70.0 Examination 10:30a Cyrus Goldberg M.D.,[facility] Routine AT [facility] Care [facility] 401.9 Hypertension Unspec 314.00 Attention Deficit Disorder W/O Mention Of Hyperactivity 607.84 Impotence Organic Origin Office Visit 12/01/2010 1:00p DO Not Use Maintenance Operator Oscar Ulrich 465.9 URI Upper AT Jamie Braun M.D. Respiratory Infections Acute Unspec Sites Office Visit 06/11/2010 2:40p DO Not Use Maintenance Operator Kilo 466.0 Bronchitis Acute AT Jamie Mccullough M.D. Office Visit 11/06/2009 9:20a DO Not Use Maintenance Operator Rodolfo 473.8 Sinusitis Chronic AT Mesopotamiarachelle Irene MD Other 466.0 Bronchitis Acute Office Visit 10/04/2009 9:00a DO Not Use Varinder Cantu V70.0 Examination AT Jamie Layton M.D.,[facility] General Medical Routine AT [facility] Care Facility 314.00 Attention Deficit Disorder W/O Mention Of Hyperactivity 401.9 Hypertension Unspec V76.51 Special Screening For Malignant Neoplasms Colon 278.00 Obesity Unspec 473.8 Sinusitis Chronic Other V06.5 Tetanus Diphtheria (DT) Office Visit 06/18/2009 2:30p DO Not Use Maintenance Operator Eladia Painter PA 307.[address] [facility] Other 461.9 Sinusitis Acute Unspec Office Visit 02/14/2009 3:20p DO Not Use Maintenance Operator Alex Cantu 473.[address] [facility] Stephanie Layton,FACP Chronic Unspec 487.8 Influenza W/ Other Manifestations V04.81 Need For Prophylactic Vaccination & Inoculation/Influenza Office Visit 07/11/2008 9:40a DO Not Use Maintenance Operator Alex Cantu 459.[address] [facility] Stephanie Layton,FACP W/O Complications Chronic 782.1 Rash & Other Nonspec Skin Eruption Office Visit 05/29/2008 11:40a DO Not Use Maintenance Operator AT AlexCody Layton, 782.[address] [facility] [place],FACP 682.6 Cellulitis & Abscess Leg Except Foot Office Visit 05/22/2008 11:20a DO Not Use Maintenance Operator AT AlexCody Layton, 782.[address] [facility] [place],FACP 719.47 Pain Joint Ankle & Foot 453.40 Acute Venous Embolism & Thrombosis,Unspec Deep Vessels Lower Office Visit 03/29/2008 11:40a DO Not Use Maintenance Operator Alex Cantu 401.9 Hypertension AT Mesopotamiarachelle Layton M.D.,FACP Unspec 473.9 Sinusitis Chronic Unspec Office Visit 11/28/2007 4:00p DO Not Use Maintenance Operator Alex Cantu 401.[address] [facility] Stephanie Layton,FACP Unspec 314.00 Attention Deficit Disorder W/O Mention Of Hyperactivity 473.0 Sinusitis Chronic Maxillary Office Visit 11/11/2007 3:00p DO Not Use Maintenance Operator Makayla, 461.[address] [facility] Stephanie Soares Unspec Office Visit 10/13/2007 10:00a DO Not Use Maintenance Operator Eladia Painter PA 401.[address] [facility] Unspec V77.91 Screening For Lipoid Disorders Office Visit 08/30/2007 2:20p DO Not Use Maintenance Operator Alex Cantu 473.[address] [facility] Stephanie Layton,FACP Chronic Frontal 477.8 Rhinitis Allergic Due To Other Allergen Plan of Treatment Future Appointment(s):09/19/2018 8:40 am - Boni Sanchez NP at [facility] Internal Medicine - [id number]/25/2019 8:15 am - Jessica Goodman DNP, RN, DRILLING ASSISTANT-BC at [facility]05/31/2018 - Boni Sanchez, NPZ00.00 Encounter for general adult medical examination without abnoComments:VACCINES: Flu shot every year in the fall.Your last tetanus vaccine was 2009. You will be due for a booster in 2020 unless you sustain a significant injury at this time. Shingles vaccine: Shingrix recommended in all people over 50. This is available at pharmacies.SCREENING:Colon cancer: Colonoscopy in 2016. Cholesterol yearly. This was done in March. Monthly self testicular exams recommended.Prostate cancer screening: PSA blood test if family history of prostate cancer or if you decide you want screening.We recommend that you have a health care proxy on file with us. This is a document that designates a person to make medical decisions for you if you are unable to. You can fill out the paperworkI gave you and return it to the office at your convenience.E11.9 Type 2 diabetes mellitus without complicationsComments:Your A1c was 5.8% in March. This should be rechecked in September.Follow up:F/U SeptemberG47.33 Obstructive sleep apnea ( adult) (pediatric)I10 Essential (primary) hypertensionComments:~B_HYPERTENSION:~ b_Well controlled on current regimen. Continue present management.F90.0 Attention-deficit hyperactivity disorder, predominantly inatZ23 Encounter for immunizationNew Medication:Shingrix 50 mcg/0.5ML - 0.5ml intramuscular, repeat 2 -6 months obtusI76.511 Pain in right shoulderNew Therapy:Physical TherapyComments:I have referred you for PT for further evaluation and treatment.
[2018-06-20 10:29] VITALS: BP 133/76
[2018-06-20 10:47] LABS: Influenza A Molecular POSITIVE (Negative)
--- NOTE | 2018-06-20 11:08 | UC ---
FLU HPI - HPI Summary HPI Summary: 63-year-old male comes in with a chief complaint of fevers body aches and fatigue sore throat runny nose. Patient started with a sore throat and slight cough 3 days ago. Throat hurts more when he swallows. Yesterday he started with body aches and fatigue. Also with increased rhinorrhea. Rhinorrhea started out clear then it started getting Blood and turning into yellow rhinorrhea. Patient took [id number] medications which did help with symptoms. - History of Current Complaint Chief Complaint: UCGeneralIllness Stated Complaint: FLU LIKE SYMPTOMS Time Seen by Provider: 06/20/18 10:57 Pain Intensity: 3 - Allergy/Home Medications Allergies/Adverse Reactions: Allergies Allergy/AdvReac Type Severity Reaction Status Date / Time corn oil Allergy Rash Uncoded 06/20/18 10:29 PMH/Surg Hx/FS Hx/Imm Hx Previously Healthy: Yes Cardiovascular History: Hypertension Respiratory History: Asthma GI/ History: Gastroesophageal Reflux - Surgical History Surgical History: None - Family History Known Family History: Positive: Non-Contributory - Social History Alcohol Use: Rare Substance Use Type: None Smoking Status (MU): Never Smoked Tobacco Review of Systems All Other Systems Reviewed And Are Negative: Yes Constitutional: Positive: Fever, Chills, Fatigue Skin: Positive: Negative Eyes: Positive: Negative ENT: Positive: Sore Throat, Nasal Discharge, Sinus Congestion Respiratory: Positive: Cough Cardiovascular: Positive: Negative Motor: Positive: Negative Neurovascular: Positive: Negative Musculoskeletal: Positive: Myalgia Neurological: Positive: Negative Psychological: Positive: Negative Is Patient Immunocompromised?: No Physical Exam Triage Information Reviewed: Yes Appearance: No Pain Distress, Well-Nourished, Ill-Appearing - mild Vital Signs: Initial Vital Signs Temp 98.8 F 06/20/18 10:25 Pulse 90 06/20/18 10:25 Resp 18 06/20/18 10:25 BP 133/76 06/20/18 10:25 Pulse Ox 98 06/20/18 10:25 Vital Signs Reviewed: Yes Eye Exam: Normal Eyes: Positive: Conjunctiva Clear ENT: Positive: Pharyngeal erythema, Nasal congestion, Nasal drainage, TMs normal Neck exam: Normal Neck: Positive: Supple Respiratory: Positive: Lungs clear, Normal breath sounds, No respiratory distress Cardiovascular: Positive: RRR Musculoskeletal Exam: Normal Musculoskeletal: Positive: Strength Intact, ROM Intact Neurological Exam: Normal Neurological: Positive: Alert, Muscle Tone Normal Psychological Exam: Normal Psychological: Positive: Age Appropriate Behavior Skin Exam: Normal Flu Course/Dx - Course Course Of Treatment: Because of the sore throat and worsening rhinorrhea with blood in it patient prefers to be on an antibiotic in addition to the Tamiflu. - Differential Dx/Diagnosis Provider Diagnosis: Influenza, Pharyngitis Discharge - Sign-Out/Discharge Documenting (check all that apply): Patient Departure All imaging exams completed and their final reports reviewed: No Studies - Discharge Plan Condition: Stable Disposition: HOME Prescriptions: Azithromyxin LEFTY (NF) [Z-Lefty (Zithromax) 250 mg tabs #6] 2 tab PO .TODAY, THEN 1 DAILY #6 tab Oseltamivir CAP* [Tamiflu CAP*] 75 mg PO BID #10 cap Patient Education Materials: Pharyngitis (ED), Influenza (ED) Referrals: Boni Sanchez, POWERHOUSE TENDER [Primary Care Provider] - Additional Instructions: FOLLOW UP WITH YOUR DOCTOR IF NOT COMPLETELY IMPROVED. GET RECHECKED FOR ANY WORSENING OF YOUR CONDITION OR QUESTIONS OR CONCERNS. - Billing Disposition and Condition Condition: STABLE Disposition: Home
== END 2018-06-20 11:15 | disposition home or self-care (01) ==
LOC: UCEAST 09:57
DX: J11.1 Influenza due to unidentified influenza virus with other respiratory manifestations (principal); J02.9 Acute pharyngitis, unspecified; I10 Essential (primary) hypertension; J45.909 Unspecified asthma, uncomplicated; Z91.09 Other allergy status, other than to drugs and biological substances
CPT/HCPCS: 99212; G0463

== ENCOUNTER → 2018-11-04 08:01 | Day surgery (SDC) | payer BC ==
[~2018-11-04 08:01] MED LIST: Acetaminophen TAB* 325 MG ONE; Acetaminophen TAB* 325 MG PO ONE; Acetaminophen TAB* 325 MG PO PRN; Buffered Lidocaine 1% SYRIN* 1 ML/SYRINGE INTRADERM ONE; Bupivacaine 0.5% W/EPI SDV* 30 ML VIAL ONE; Cisatracurium* 2 MG/ML MDV 5 ML ONE; Clindamycin 900 MG IVPREMIX(* 900 MG/50 ML SDV IV ONE; Dexamethasone IV* 4 MG/ML 1 ML (4 MG) ONE; DiMENhydriNATE IV* 50 MG/ML VIAL IV PUSH PRN; EPINEPHRINE 1 MG/ML 1 ML VIAL ONE; Famotidine IV* 10 MG/ML 2 ML (20 mg) ONE; Guaifenesin/Pseudo 600/60(NF) TAB (Mucinex D) PO PRN; HYDROcodone/ACETAMIN 5-325 MG* 1 TAB PO PRN; HYDROmorphone INJ1* 1 MG/ML SYRINGE IV PRN; Ketorolac INJ* 30 MG/ML 1 ML VIAL ONE; Labetalol IV* 5 MG/ML 20 ML VIAL ONE; Lactated Ringers 1000 ML Bag* 1,000 ML IV SCH; Lidocaine 1% MPF ** 5 ML VIAL ONE; Lidocaine 2% PF * 5 ML VIAL ONE; Midazolam* 1 MG/ML 5 ML VIAL (5 MG) ONE; Naloxone* 0.4 MG/ML 1 ML VIAL IV PRN; Ondansetron INJ* 2 MG/ML VIAL IV PRN; Ondansetron INJ* 2 MG/ML VIAL ONE; PROCHLORPERAZINE INJ 5 MG/ML 2 ML VIAL IV PRN; Propofol* 10 MG/ML 20 ML BTL ONE; ROPIVACAINE 5 MG/ML 30 ML BTL (0.5%) ONE; Ropivacaine (OR use only) 2 MG/ML 10 ML ONE; Scopolamine 1.5 mg* PATCH TRANSDERM PRN; Scopolamine PATCH Remove* 1 NOTE MISC PATCH OFF ONE; Succinylcholine* 20 MG/ML 10 ML VIAL ONE; diPHENhydraMINE IV* 50 MG/ML 1 ml VIAL (BENADRYL) IV PRN; fentaNYL* 50 MCG/ML 2 ML VIAL (100 MCG VIAL) IV PRN; fentaNYL* 50 MCG/ML 2 ML VIAL (100 MCG VIAL) ONE
[2018-11-04 16:03] VITALS: BP 134/86
--- NOTE | 2018-11-06 07:24 | OP ---
OPERATIVE REPORT: DATE OF OPERATION: 11/04/18 DATE OF : 59 SURGEON: Jose Rafael Gonsalez MD [facility] REPRESENTATIVE: SABA Prabhakar A physician pharmacy assistant was required for the length of the procedure for assistance with patient positioning, instrumentation, and closure. ANESTHESIOLOGIST: Dr. Nestor De Luna. ANESTHESIA: General anesthesia, regional interscalene block anesthesia. PRE-OP DIAGNOSES: 1. Right shoulder rotator cuff tendon tear, full thickness, large, severely retracted, likely acute on chronic, supraspinatus, infraspinatus. 2. Right shoulder subacromial impingement and bursitis, acromioclavicular joint osteoarthritis. 3. Possible right shoulder proximal biceps tendinitis or superior labral tear. POST-OP DIAGNOSES: 1. Right shoulder rotator cuff tendon tear, full thickness, large, severely retracted, likely acute on chronic, supraspinatus, and the superior most aspect of the infraspinatus. 2. Right shoulder subacromial impingement and bursitis, with mild acromioclavicular joint osteoarthritis. 3. Right shoulder proximal biceps tendinitis. OPERATIVE PROCEDURE: 1. Right shoulder arthroscopic rotator cuff tendon repair, supraspinatus, infraspinatus, large, severely retracted. 2. Unusual or complex procedure, modifier 22. I chose to apply this to this case because of the complexity of the procedure. This procedure was complex for multiple reasons. The humeral head was elevated at the start of the case making instrumentation more difficult. The rotator cuff tendon was severely retracted to the level of the glenoid, with significant amount of mobilization, including releases all around it and an anterior interval slide between the supraspinatus and subscapularis tendons. I placed 5 anchors, double-row repair , 3 anchors medial and 2 lateral. 3. Right shoulder arthroscopic limited debridement, including biceps tendon proximal release, anterior interval slide, significant releases in the subacromial space. 4. Right shoulder arthroscopic subacromial decompression. 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 The patient stood up from a chair and passed out, hit the ground, and then a second time fell. The day before the surgery, the patient's told me that the patient actually had some right shoulder weakness for many years, too many years to calculate, such that he had avoided doing any overhead work with that right arm. The patient had also had some chronic low level pain in that right shoulder. He had seen his primary care physician, but had never pursued treatment. After the patient's 07/24/18 injury, the patient went to his primary care physician and had x-rays, and was ordered for physical therapy. MRI had some trouble getting done and the patient eventually presented to our clinic after MRI had been performed. The patient was referred by one of my partners. On examining advanced imaging, the patient had a number of worrisome signs for the repairability of his rotator cuff. The patient could only actively elevate his shoulder to 90 degrees. The patient had an external rotation lag to 0 degrees with the arm at the side. That was worrisome for both the status of the supraspinatus and infraspinatus. Not just on MRI imaging, done supine, but on x-rays, there was humeral head elevation with narrowed acromiohumeral distance approved. MRI also showed the supraspinatus to be retracted to the level of the glenoid. The muscle atrophy in the supraspinatus was only mild or moderate, and the muscle looked especially robust more medially. More worrisome was the more significant atrophy, which appeared chronic of the infraspinatus muscle on the sagittal cuts. I discussed different treatment options with the patient nonoperative and operative, the patient opted for surgery. I discussed with the patient and his surgery, which would be rotator cuff repair and/or superior capsular repair if I found the supraspinatus to not to be repairable. I was ready to do either procedures. The patient was not interested in shoulder arthroplasty nor in nonoperative treatment. I discussed risks and potential complications of surgery. First and foremost of those is the possibility of the lack of healing or of future open tear whether rotator cuff repair or superior capsular repair is performed. ANTIBIOTICS: Clindamycin 900 mg IV. IV FLUIDS: 600 cc crystalloid. [id number] TIME: 180 minutes. ARTHROSCOPIC FLUID UTILIZED: Not recorded by me. SPECIMEN: None. IMPLANTS: Five Arthrex rotator cuff anchors; the first three were 5.5-mm corkscrew anchors each double-loaded with FiberTape. The lateral 2 anchors were SwiveLock 4.5-mm anchors, all Arthrex. COMPLICATIONS: None. ESTIMATED BLOOD LOSS: Minimal. DESCRIPTION OF PROCEDURE: In preoperative holding, the patient signed a written consent. Operative extremity was marked in preoperative holding. The patient underwent a regional interscalene nerve block by anesthesiologist. The patient was next brought into the operating room. The patient was sedated and intubated. The patient was converted into the lateral decubitus position. Axillary roll. Burdick bag hardened. All bony prominence is padded. Right shoulder was placed in 15 degrees of longitudinal traction. I set the arm at a length 30 degrees of abduction in case a superior capsular repair was performed. Appropriate amount of forward flexion. The right shoulder was prepped and draped. Surgical time-out was performed. I entered the glenohumeral joint with a spinal needle and infused 30 cc of normal saline. I then made a standard posterior portal glenohumeral joint. I started my diagnostic arthroscopy. I noted that the humeral head was significantly elevated as compared to the glenoid. This was rather a significant finding and also it narrowed some of the space between the glenoid and the humeral head. There were no advanced articular cartilage changes or bone spurs visible in the glenohumeral joint. The patient clearly had a significant rotator cuff tear as I could easily see up into the subacromial space. No loose bodies. I entered the joint from anterior, establishing anterior glenohumeral joint border under direct visualization. I debrided some of the rotator cuff interval tissue with an arthroscopic shaver. I identified the subscapularis and noted it to be intact. I noted a significant tendinosis, shredding along the biceps long head tendon. Based on the current state of the biceps and the likely future state of the biceps, I thought it was reasonable to release the biceps tendon and I had discussed with the patient and his my preference for biceps release over tenodesis preoperatively in these larger rotator cuff repairs. The biceps tendon after releasing, not surprisingly for this older patient with more advanced disease, I did not even retract out of the joint and the cut end of the long head biceps tendon was actually visible throughout the procedure, still intraarticular. I next moved to the subacromial space, anterior and posterior. I made lateral and posterolateral incisions under direct visualization. I performed the subacromial bursectomy using an arthroscopic shaver. I immediately visualized the supraspinatus tendon, as retracted to the level of the glenoid, as expected. There was a large area of the supraspinatus and part of the infraspinatus insertion sites. I needed to evaluate whether a superior capsular repair would be required. I placed a traction stitch in the supraspinatus tendon with a FiberWire #2 suture. When this suture was cut later on the case, I placed an additional FiberWire #2 suture. I debrided superior and inferior to the tendon with an arthroscopic shaver as well as with the switching stick. The tendon was able to be mobilized more and when I let go of the traction stitch, it rested lateral to the glenoid. With the traction stitch, I was able to bring it to the humeral head. This may be optimistic that a repair could be performed and that a superior capsular repair would not be required. I continued my releases. I performed an anterior interval slide. I released tissue in the rotator cuff interval, including coracohumeral ligament and SGHL, so I had a clean look from the humeral head down to the coracoid process, which I released down to. This produced additional excursion of the supraspinatus tendon. Now, the tendon could be brought nicely to bone. At this point, I decided definitively not to do the superior capsular repair and proceed with just a rotator cuff repair, complex. I performed a subacromial decompression with an arthroscopic bur. The patient had only some mild curving to the anterior aspect of the acromion. I flattened this out with a bur. Although I needed to release soft tissues anteriorly to help with mobilization, I tried to release at least part of the coracoacromial ligament intact to prevent future anterosuperior humeral head escape if the patient were to retear his rotator cuff in the future. I next used an arthroscopic bur to freshen up the rotator cuff footprint bed to facilitate healing. I also medialized a footprint 3 mm or so to make my repair less on attention. The infraspinatus tendon did not look particularly robust, that was still was attached to the humeral head. It also looked to be sagging inferior a little bit. I thought as the first part of my repair, I would attempt to superiorize the intact infraspinatus tendon. Therefore, I placed a Corkscrew 5.5-mm suture anchors through a superolateral poke hole into the posterior aspect of the medial footprint. Using retrograde and anterograde suture passers, I placed 2 horizontal mattress stitches in that infraspinatus tendon, which superiorized it slightly. I was happy with this and I believe that it redirect slightly that the line of action of the intact infraspinatus tendon. I then went about repairing the torn and retracted supraspinatus and perhaps 10 % to 25% of the superior aspect of the infraspinatus. I placed 2 medial row suture anchors each double-loaded with FiberTape. I used anterograde suture passers to pass horizontal mattress stitches. I tied these as I went to make sure that I liked the look of the repair given its complexity. The rotator cuff tendon came down nicely. I would say I was able to mobilize that slightly more laterally anterior than posterior. What I really liked was that when I brought the tendons to bone, the infraspinatus that was repaired was directly adjacent to the infraspinatus that was still intact, making this really look like a whole rotator cuff sleeve. I next placed 2 lateral row anchors with sutures from the medial row placed into SwiveLock anchors, one more anterior and other more posterior. I liked my repair. It was stable to probing and to passive range of motion of the humeral head. I next visualized the AC joint. I was able to see really well from posterior there did not seem to be large spurs and there was a gap between the bones. Therefore, I did not think it was worth the additional postoperative pain to perform the distal clavicle resection. We closed the skin incisions with [id number] and 12 stitches using nylon 3- 0 suture. Gelfoam, 4x4s, ABDs, foam tape. A sling and abduction pillow applied. A cooling unit applied. The patient was awakened, extubated, and brought to the PACU. DISPOSITION: Wound care instructions provided. Percocet as needed for pain control. Bactrim for 5 days for infection prophylaxis. The patient will follow up in 10 to 14 days postoperatively. I plan on the patient being in a sling for 8 weeks and for physical therapy not to begin until 8 weeks postoperative. [id number]/CPS #: [id number] JOHN
== END | disposition home or self-care (01) ==
LOC: OR 08:01
PROVIDERS: ATTEND Orthopaedic Surgery
DX: S46.011A Strain of muscle(s) and tendon(s) of the rotator cuff of right shoulder, initial encounter (principal); M75.41 Impingement syndrome of right shoulder; M75.51 Bursitis of right shoulder; M19.011 Primary osteoarthritis, right shoulder; M75.21 Bicipital tendinitis, right shoulder; W19.XXXA Unspecified fall, initial encounter; Y92.9 Unspecified place or not applicable; G89.18 Other acute postprocedural pain; I10 Essential (primary) hypertension; G47.33 Obstructive sleep apnea (adult) (pediatric); E11.9 Type 2 diabetes mellitus without complications; G89.29 Other chronic pain; Z79.891 Long term (current) use of opiate analgesic; K21.9 Gastro-esophageal reflux disease without esophagitis; D84.9 Immunodeficiency, unspecified
CPT/HCPCS: A9270-GY; C1713; J0330; J1100; J1885; J2250; J2405; J2704; J2795; J3010